=== PATIENT | female | born 1950 | race African-American/Black ===

== ENCOUNTER 2017-08-30 15:38 | Inpatient (IN) | payer MEDICARE, MEDICAID ==
[~2017-08-30] VITALS: Ht 160 cm; Wt 85.7 kg
[~2017-08-30 15:38] MED LIST: ADVAIR 100-501 EACH IH; ALBUTEROL2.5 MG/3 M HHN; BENADRYL25 MG PO; COUMADIN; COUMADIN1 MG ORAL; COUMADIN5 MG ORAL; DILANTIN100 MG PO; DILAUDID2 MG PO; DILAUDID4 MG ORAL; METFORMIN HCL1000 M1 ORAL; MS CONTIN15 MG PO; OXYCONTIN10 MG PO; OXYCONTIN20 MG PO; PERCOCET 5-3251 EACH PO; PROVENTIL2 MG PO; TENORMIN50 MG ORAL; UNOBMED; VICODIN 5-5001 EACH PO; htn med
[2017-08-30 16:00] VITALS: BP 139/69
[2017-08-30] MEDS ORDERED: Albuterol ud Inhalation HHN PRN (16:45)
[2017-08-30] MEDS: Morphine Sulfate 2mg/ml Inj IVP PRN ×2 (18:10→21:11)
[2017-08-30] MEDS ORDERED: Nitroglycerin Subl 0.4mg tab SL PRN (20:15)
[2017-08-30 21:00] VITALS: BP 154/74
[2017-08-31] VITALS: BP 132/70
[2017-08-31] MEDS: Morphine Sulfate 2mg/ml Inj IVP PRN ×8 (00:17→21:15)
--- NOTE | 2017-08-31 01:01 | History and Physical Report ---
DATE OF ADMISSION: 08/30/2017 NOTE: POOR AUDIO HISTORY: This is a 66-year-old female who was living at board and care, came to the hospital for having intractable lower back pain and severe arthritis on both knees and hip area. The patient also had ORIF on the left femur. She also has history of depression and . ALLERGIES: NKA. MEDICATIONS: See the list. PHYSICAL EXAMINATION: GENERAL: This is an elderly female, who is currently slightly anxious, complaining of intractable pain on lower back as well as bilateral knee. VITAL SIGNS: Blood pressure is 130/70, pulse 74, respirations 18, and saturation 96%. HEENT: ATNC. EOMI. PERRLA. NECK: Supple. No JVD. CHEST: Bilateral few crackles and wheezing. CARDIOVASCULAR: Regular rhythm. No gallop. No murmur. ABDOMEN: Soft. Positive bowel sounds. Nontender. EXTREMITIES: The patient has diffuse tenderness on both knees as well as lower back on the lumbar spine and the patient is stooping. The patient is unable to walk due to the pain. GENITOURINARY: Refused. RECTAL: Refused. ASSESSMENT: 1. Intractable pain. 2. Severe arthritis. 3. Chronic back pain. 4. Depression. 5. Status post open reduction and internal fixation. PLAN: She will be admitted on medical floor. We will start pain medicine morphine. Consider pain consult. Consider also psychiatric consult. Also added Cymbalta for depression. chest x-ray and x-ray on lower back pain as well as knee. the patient also given breathing treatment because of COPD and chronic smoker. Also we . Stuart García M.D. DR: KELSEY JOB#: [id number] CC:
[2017-08-31 04:00] VITALS: BP 123/66
[2017-08-31] MEDS: Albuterol/Ipratropium 3ml neb HHN PRN ×2 (05:49→20:19)
[2017-08-31] MEDS: Miralax 17gm pkt ORAL PRN (06:31)
[2017-08-31 08:00] VITALS: BP 130/77
--- NOTE | 2017-08-31 08:32 | Consultation ---
History of Present Illness General Date patient seen: Aug 31, 2017 Present Illness Allergies: Coded Allergies: NO KNOWN ALLERGIES (Unverified Allergy, Unknown, 10/27/14) Medication History Scheduled Metformin Hcl* (Metformin Hcl*), 1,000 MG ORAL BID, (Reported) Warfarin Sod* (Coumadin*), 5 MG ORAL DAILY Scheduled PRN Albuterol Sulfate* (Albuterol Sulfate Hhn*), 2.5 MG HHN Q4H PRN, (Reported) Miscellaneous Medications Albuterol Sulf (Albuterol Sulfate), 2 PUFFS PO, (Reported) [Coumadin], (Reported) [htn med], (Reported) Discontinued Medications Atenolol* (Tenormin*), 50 MG ORAL DAILY, (Reported) Discontinued Reason: Pt stopped taking med Diphenhydramine Hcl* (Benadryl*), 25 MG PO Q6H Discontinued Reason: Pt stopped taking med Hydrocodone/Acetaminophen 5-500 (Vicodin 5-500), TAB PO, (Reported) Discontinued Reason: Pt stopped taking med Hydromorphone HCl (Dilaudid), 2 MG PO Q4H, (Reported) Discontinued Reason: Pt stopped taking med Hydromorphone HCl (Dilaudid), 6 MG ORAL Q4HR PRN, (Reported) Discontinued Reason: Pt stopped taking med Morphine Sulfate (Morphine Sulfate), 15 MG PO BID, (Reported) Discontinued Reason: Pt stopped taking med Oxycodone Hcl Er* (Oxycontin*), 20 MG PO BID, (Reported) Discontinued Reason: Pt stopped taking med Oxycodone/Acetaminophen 5-325* (Percocet 5-325 Mg Tablet*), 1 EACH PO Q4H Discontinued Reason: Pt stopped taking med Patient History Healthcare decision maker N Resuscitation status Do Not Resuscitate Advanced Directive on File No Physical Exam Last 24 Hour Vital Signs Date Time Temp Pulse Resp B/P (MAP) Pulse Ox O2 Delivery O2 Flow Rate FiO2 08/31/17 05:59 81 18 99 Room Air 21 08/31/17 05:49 74 20 99 Room Air 21 08/31/17 04:00 98.0 86 17 123/66 96 Room Air 98.0 08/31/17 01:16 85 18 99 Room Air 08/31/17 00:52 76 20 99 Room Air 21 08/31/17 00:00 98.6 76 18 132/70 100 Room Air 98.6 08/30/17 21:00 98.5 106 20 154/74 98 98.5 08/30/17 18:40 98.6 08/30/17 18:10 98.6 08/30/17 16:00 98.6 76 18 139/69 98 Room Air 98.6 Laboratory Tests Test 08/31/17 06:00 Urine Opiates Screen Pending Urine Barbiturates Screen Pending Phencyclidine (PCP) Screen Pending Urine Amphetamines Screen Pending Urine Benzodiazepines Screen Pending Urine Cocaine Screen Pending Urine Marijuana (THC) Screen Pending Height (Feet): 5 Height (Inches): 3.00 Weight (Pounds): 189 Medications Current Medications Medications (Trade) Dose Ordered Sig/Temi Route PRN Reason Start Time Stop Time Status Last Admin Dose Admin Albuterol Sulfate (Proventil) 2.5 mg Q4H PRN HHN Shortness of Breath 08/30/17 16:45 09/04/17 16:44 Albuterol/ Ipratropium (Albuterol/ Ipratropium) 3 ml Q6H PRN HHN Shortness of Breath 08/30/17 23:00 09/04/17 22:59 08/31/17 05:49 Amitriptyline HCl (Elavil) 25 mg BEDTIME ORAL 08/30/17 21:00 09/29/17 20:59 08/30/17 21:11 Aspirin (ASA) 81 mg DAILY ORAL 08/31/17 09:00 09/30/17 08:59 Cyclobenzaprine HCl (Flexeril) 10 mg TIDPRN PRN ORAL Muscle Spasm 08/31/17 08:15 09/30/17 08:14 UNV Diphenhydramine HCl (Benadryl) 25 mg Q6H PRN ORAL Itching 08/30/17 23:00 09/29/17 22:59 08/31/17 04:35 Duloxetine HCl (Cymbalta) 60 mg DAILY ORAL 08/31/17 09:00 09/30/17 08:59 Famotidine (Pepcid) 40 mg BID ORAL 08/30/17 18:00 09/29/17 17:59 08/30/17 18:10 Morphine Sulfate (Morphine Sulfate) 2 mg Q3H PRN IVP For Pain 08/30/17 16:45 09/06/17 16:44 08/31/17 06:25 Nicotine (Nicoderm) 1 patch Q24H TDERMAL 08/30/17 21:00 09/29/17 20:59 08/30/17 21:12 Nitroglycerin (Ntg) 0.4 mg DAILY SL 08/31/17 09:00 09/30/17 08:59 Nitroglycerin (Ntg) 0.4 mg Q5M PRN SL Prn Chest Pain 08/30/17 20:15 09/29/17 20:14 Non-Formulary Medication (Non-Formulary Med) 1 ea DAILY ORAL 08/31/17 09:00 09/30/17 08:59 UNV Oxycodone/ Acetaminophen (Percocet 10/325) 1 tab Q4H PRN ORAL moderate pain 08/31/17 08:15 09/07/17 08:14 UNV Polyethylene Glycol (Miralax) 17 gm DAILY PRN ORAL Constipation 08/30/17 23:00 09/29/17 22:59 08/31/17 06:31 Pregabalin (Lyrica) 75 mg THREE TIMES A DAY ORAL 08/31/17 09:00 09/30/17 08:59 UNV Assessment/Plan Assessment/Plan (1) Lumbar Spondylosis (2) Lumbar Radiculopathy (3) Multiple joint Osteoarthritis (4) Multiple joint pain (5) H/o polysubstance abuse seen dictated. Ervin Turner Aug 31, 2017 08:32
[2017-08-31] MEDS: Aspirin Baby 81mg ORAL SCH (09:18)
[2017-08-31] MEDS: DULoxetine 30mg cap ORAL SCH (09:18)
[2017-08-31] MEDS: Lyrica 75mg cap ORAL SCH ×3 (09:19→18:23)
[2017-08-31] MEDS: Nitroglycerin Subl 0.4mg tab SL SCH (09:20)
[2017-08-31 12:00] VITALS: BP 128/68
--- NOTE | 2017-08-31 12:36 | Diagnostic Imaging Report ---
Indication: Lumbar spine pain Technique: 3 views of the lumbar spine Comparison: None Findings: Bony alignment is normal. Vertebral body heights are preserved. The disc spaces are preserved. No acute fractures. No dislocations. Bones appear osteoporotic. There is a left hip prosthesis. Impression: No acute process Osteoporotic changes
--- NOTE | 2017-08-31 12:48 | Diagnostic Imaging Report ---
Indication: Intractable chronic low back pain and bilateral leg pain Technique: Sagittal T1 and T2 fast spin echo, sagittal STIR, axial T1 and T2 fast spin-echo images of the lumbar spine Comparison: Plain radiographs performed earlier the same day Findings: Bony alignment is normal. Vertebral body heights are preserved. The vertebral body marrow signal is normal. Conus medullaris terminates at the L1-2 level. The disc spaces are preserved. At L3-4, minimal intraforaminal broad-based disc protrusion bilaterally results in borderline narrowing of the neural foramina. No significant disc bulge or protrusion or spinal stenosis at this level. At the remainder of the levels, no significant disc bulge or protrusion, spinal stenosis, or neural foraminal stenosis. The included extraspinal soft tissues are unremarkable Impression: Essentially unremarkable exam. No evidence of acute bony trauma or significant neural impingement Minimal degenerative changes at L3-4 as described
--- NOTE | 2017-08-31 14:48 | Consultation ---
History of Present Illness General Date patient seen: Aug 31, 2017 Present Illness HPI 66-year-old female who was living at [facility] and care, came to the hospital for having intractable lower back pain and severe arthritis on both knees and hip area. The pt has anxiety and insomnia. the pt is low energy and not able to cope with her stressors Allergies: Coded Allergies: NO KNOWN ALLERGIES (Unverified Allergy, Unknown, 10/27/14) Medication History Scheduled Metformin Hcl* (Metformin Hcl*), 1,000 MG ORAL BID, (Reported) Warfarin Sod* (Coumadin*), 5 MG ORAL DAILY Scheduled PRN Albuterol Sulfate* (Albuterol Sulfate Hhn*), 2.5 MG HHN Q4H PRN, (Reported) Miscellaneous Medications Albuterol Sulf (Albuterol Sulfate), 2 PUFFS PO, (Reported) [Coumadin], (Reported) [htn med], (Reported) Discontinued Medications Atenolol* (Tenormin*), 50 MG ORAL DAILY, (Reported) Discontinued Reason: Pt stopped taking med Diphenhydramine Hcl* (Benadryl*), 25 MG PO Q6H Discontinued Reason: Pt stopped taking med Hydrocodone/Acetaminophen 5-500 (Vicodin 5-500), TAB PO, (Reported) Discontinued Reason: Pt stopped taking med Hydromorphone HCl (Dilaudid), 2 MG PO Q4H, (Reported) Discontinued Reason: Pt stopped taking med Hydromorphone HCl (Dilaudid), 6 MG ORAL Q4HR PRN, (Reported) Discontinued Reason: Pt stopped taking med Morphine Sulfate (Morphine Sulfate), 15 MG PO BID, (Reported) Discontinued Reason: Pt stopped taking med Oxycodone Hcl Er* (Oxycontin*), 20 MG PO BID, (Reported) Discontinued Reason: Pt stopped taking med Oxycodone/Acetaminophen 5-325* (Percocet 5-325 Mg Tablet*), 1 EACH PO Q4H Discontinued Reason: Pt stopped taking med Patient History Limited by: medical condition History Provided By: Patient, Medical Record, PMD Healthcare decision maker N Resuscitation status Do Not Resuscitate Advanced Directive on File No Past Medical/Surgical History Past Medical/Surgical History: (1) Intractable pain (2) Hypertension (3) Chronic pain (4) Intractable pain (5) Anxiety and depression Review of Systems Psychiatric: Reports: prior hx, anxiety, emotional problems Physical Exam General Appearance: no apparent distress, alert Neurologic: alert, oriented x 3, responsive, depressed affect Last 24 Hour Vital Signs Date Time Temp Pulse Resp B/P (MAP) Pulse Ox O2 Delivery O2 Flow Rate FiO2 08/31/17 14:30 97.8 08/31/17 13:31 97.8 08/31/17 12:55 97.8 08/31/17 12:25 97.8 08/31/17 12:00 97.8 70 19 128/68 97 Room Air 97.8 08/31/17 09:25 97.8 08/31/17 09:20 130/77 08/31/17 09:19 97.8 08/31/17 08:00 97.8 71 20 130/77 98 Room Air 97.8 08/31/17 06:55 69 20 Room Air 21 08/31/17 05:59 81 18 99 Room Air 21 08/31/17 05:49 74 20 99 Room Air 21 08/31/17 04:00 98.0 86 17 123/66 96 Room Air 98.0 08/31/17 01:16 85 18 99 Room Air 21 08/31/17 00:52 76 20 99 Room Air 21 08/31/17 00:00 98.6 76 18 132/70 100 Room Air 98.6 08/30/17 21:00 98.5 106 20 154/74 98 98.5 08/30/17 18:10 98.6 08/30/17 16:00 98.6 76 18 139/69 98 Room Air 98.6 Laboratory Tests Test 08/31/17 06:00 Urine Opiates Screen Positive (NEGATIVE) H Urine Barbiturates Screen Negative (NEGATIVE) Phencyclidine (PCP) Screen Negative (NEGATIVE) Urine Amphetamines Screen Negative (NEGATIVE) Urine Benzodiazepines Screen Negative (NEGATIVE) Urine Cocaine Screen Negative (NEGATIVE) Urine Marijuana (THC) Screen Negative (NEGATIVE) Height (Feet): 5 Height (Inches): 3.00 Weight (Pounds): 189 Medications Current Medications Medications (Trade) Dose Ordered Sig/Temi Route PRN Reason Start Time Stop Time Status Last Admin Dose Admin Albuterol Sulfate (Proventil) 2.5 mg Q4H PRN HHN Shortness of Breath 08/30/17 16:45 09/04/17 16:44 Albuterol/ Ipratropium (Albuterol/ Ipratropium) 3 ml Q6H PRN HHN Shortness of Breath 08/30/17 23:00 09/04/17 22:59 08/31/17 05:49 Amitriptyline HCl (Elavil) 25 mg BEDTIME ORAL 08/30/17 21:00 09/29/17 20:59 08/30/17 21:11 Aspirin (ASA) 81 mg DAILY ORAL 08/31/17 09:00 09/30/17 08:59 08/31/17 09:18 Cyclobenzaprine HCl (Flexeril) 10 mg TIDPRN PRN ORAL Muscle Spasm 08/31/17 09:00 09/30/17 08:59 Diphenhydramine HCl (Benadryl) 25 mg Q6H PRN ORAL Itching 08/30/17 23:00 09/29/17 22:59 08/31/17 04:35 Duloxetine HCl (Cymbalta) 60 mg DAILY ORAL 08/31/17 09:00 09/30/17 08:59 08/31/17 09:18 Famotidine (Pepcid) 40 mg BID ORAL 08/30/17 18:00 09/29/17 17:59 08/31/17 09:19 Morphine Sulfate (Morphine Sulfate) 2 mg Q3H PRN IVP For Pain 08/30/17 16:45 09/06/17 16:44 08/31/17 12:25 Nicotine (Nicoderm) 1 patch Q24H TDERMAL 08/30/17 21:00 09/29/17 20:59 08/30/17 21:12 Nitroglycerin (Ntg) 0.4 mg DAILY SL 08/31/17 09:00 09/30/17 08:59 08/31/17 09:20 Nitroglycerin (Ntg) 0.4 mg Q5M PRN SL Prn Chest Pain 08/30/17 20:15 09/29/17 20:14 Non-Formulary Medication (Non-Formulary Med) 1 ea DAILY ORAL 08/31/17 09:00 09/30/17 08:59 UNV Oxycodone/ Acetaminophen (Percocet 10/325) 1 tab Q4H PRN ORAL Moderate Pain (Pain Scale 4-6) 08/31/17 09:00 09/07/17 08:59 Polyethylene Glycol (Miralax) 17 gm DAILY PRN ORAL Constipation 08/30/17 23:00 09/29/17 22:59 08/31/17 06:31 Pregabalin (Lyrica) 75 mg THREE TIMES A DAY ORAL 08/31/17 09:00 09/30/17 08:59 08/31/17 13:31 Assessment/Plan Assessment/Plan Anxiety d/o MDD lexapro 10mg qam klonopin 1mg bid as needed Yumiko Wallace M.D. Aug 31, 2017 14:48
--- NOTE | 2017-08-31 15:43 | Diagnostic Imaging Report ---
Indication: Left knee pain Technique: 2 views of the left knee Comparison: none Findings: No acute fractures. No dislocations. No suprapatellar effusion. The joint spaces are preserved. The bones are osteoporotic Impression: Osteoporotic change. No acute bony trauma
--- NOTE | 2017-08-31 15:44 | Diagnostic Imaging Report ---
Indication: Right knee pain Technique: 2 views of the right knee Comparison: none Findings: No acute fractures. No dislocations. Bony alignment is normal. Joint spaces are preserved. No suprapatellar effusion. Bones are osteoporotic Impression: Osteoporotic changes No acute bony trauma
[2017-08-31 16:00] VITALS: BP 125/70
[2017-08-31 20:00] VITALS: BP 146/80
--- NOTE | 2017-08-31 20:01 | Consultation ---
DATE OF CONSULTATION: 08/31/2017 PAIN MANAGEMENT CONSULTATION CONSULTING PHYSICIAN: Manny Sinha M.D. REFERRING PHYSICIAN: Stuart García M.D. PHYSICIAN INSTRUCTIONAL WRITER: Varsha Pastor CHIEF COMPLAINT: Low back and bilateral lower extremity pain. HISTORY OF PRESENT ILLNESS: This is a 66-year-old female, who is being seen on the medical/surgical floor of [facility] for comprehensive pain management consultation. The patient is a known patient from past admissions and from Dr. Sinha's office, now has returned to the hospital under the care of Dr. García complaining of intractable back and lower extremity pain. Reports that she has history of low back pain for many years, it is chronic and constant, rating at 10/10, describing the pain as sharp, stabbing, shooting pain into bilateral extremities as well as having hip and knee osteoarthritis, receiving injections in [place] with as well as getting oxycodone 30 mg tablets 2 to 3 times a day as an outpatient. Again at this time, the patient was admitted under the care of Dr. García, started on morphine 2 mg IV every 3 hours as needed for pain with minimal pain relief. We were consulted as the patient would have adequate pain control while here in the hospital. The patient reports that in the past, she had epidural injections and would like another series. Discussed with the patient about ordering MRI of the lumbar spine to further assess for epidural injection. The patient seems to understand. She states she has severe bipolar disorder and is going to be seen by a psychiatrist as well. PAST MEDICAL HISTORY: Hypertension and high cholesterol. PAST SURGICAL HISTORY: Left hip surgery. MEDICATIONS: Oxycodone. ALLERGIES: No known drug allergies. SOCIAL HISTORY: She is a smoker of tobacco. Denies alcohol abuse. She has history of cocaine and methamphetamine abuse. REVIEW OF SYSTEMS: Denies rash, fever, chills, sweating, dizziness, drowsiness, blurred vision, sore throat, change in hearing or weight. No shortness of breath or chest pain. No nausea, vomiting, diarrhea, or blood in the stool or urine. No bowel or bladder incontinence. No dysuria. She is complaining of low back and bilateral lower extremity pain. PHYSICAL EXAMINATION: GENERAL: Alert, awake, and oriented. VITAL SIGNS: Blood pressure 123/66, heart rate 86, oxygen saturation is 92%, respirations 17, and temperature 98 degrees Fahrenheit. HEENT: PERRLA. NECK: Range of motion is full in all directions. No tenderness over paracervical muscles. No adenopathy. LUNGS: Decreased breath sounds bilaterally. HEART: Regular. ABDOMEN: Obese. BACK: Range of motion is decreased in flexion and extension with tenderness to paraspinal muscles. No tenderness over trapezius or rhomboid muscles. EXTREMITIES: Upper extremity range of motion is full in all directions. No cyanosis. No clubbing. No edema. Sensory is intact. Reflexes are not obtainable. No adenopathy. Lower extremity motion is decreased due to the patient's condition. Motor being 4/5 in all muscles bilaterally. No cyanosis. No clubbing. Sensory is reduced. Reflexes are not obtainable. No adenopathy. ASSESSMENT AND PLAN: This is a 66-year-old female with lumbar spondylosis, lumbar radiculopathy, multiple-joint osteoarthritis with recurrent pain, and history of polysubstance abuse. The patient will be continued on morphine 2 mg IV every 3 hours as needed for severe pain. We will start the patient on Percocet tablet of 10/325 mg one tablet every 4 hours as needed for moderate pain. Discontinue the Neurontin. Start the patient is on Lyrica 75 mg 3 times a day and add Flexeril 10 mg tablet every 8 hours as needed for muscle spasm. We will order MRI of lumbar spine without contrast to further assess for pathology in the lower back. The patient was discussed with Dr. Sinha and Dr. Sinha concurred. We will follow the patient. Thank you very much for the courtesy of this consultation. Manny Sinha M.D. BRYAN Pastor DR: LÓPEZ JOB#: [id number] CC:
[2017-09-01 00:04] VITALS: BP 155/75
[2017-09-01] MEDS: Morphine Sulfate 2mg/ml Inj IVP PRN ×8 (00:28→21:18)
--- NOTE | 2017-09-01 04:00 | Progress Note ---
DATE: 08/31/2017 NOTE: POOR AUDIO REASON FOR ADMISSION: Intractable pain and chronic obstructive pulmonary disease exacerbation. SUBJECTIVE: This is an elderly female, who is currently complaining of still pains and right hip. The patient is also having cough with sputum production and mild short of breath. PHYSICAL EXAMINATION: VITAL SIGNS: Her blood pressure is 140/90, pulse 60, respirations 18, no fever. HEENT: NAD. CHEST: Bilateral expiratory wheezing and crackles. CARDIOVASCULAR: Regular rhythm. No gallop. No murmur. ABDOMEN: Soft. Positive bowel sounds. Nontender. EXTREMITIES: No swelling. GENITOURINARY: Deferred. LABORATORY DATA: Laboratory examinations are unremarkable. ASSESSMENT: 1. Intractable pain. 2. Acute chronic obstructive pulmonary disease. 3. Hypertension. 4. Degenerative arthritis. 5. Depression. PLAN: We will currently continue psychotropics, continue pain continue morphine and PT and OT. X-ray of the spine and x-ray of hip and bilateral knees pending. Ortho consult is also called, but was not seen at this point. Continue heat pack, Voltaren gel. Continue the gabapentin. Continue Flexeril. Stuart García M.D. DR: MATA JOB#: [id number] CC:
[2017-09-01 04:48] VITALS: BP 135/83
[2017-09-01 08:00] VITALS: BP 137/69
[2017-09-01] MEDS: DULoxetine 30mg cap ORAL SCH (08:25)
[2017-09-01] MEDS: Nitroglycerin Subl 0.4mg tab SL SCH (08:26)
[2017-09-01] MEDS: Lyrica 75mg cap ORAL SCH ×3 (08:26→17:43)
[2017-09-01] MEDS: Aspirin Baby 81mg ORAL SCH (08:26)
[2017-09-01 12:00] VITALS: BP 157/80
[2017-09-01] MEDS: Miralax 17gm pkt ORAL PRN (12:44)
[2017-09-01 16:00] VITALS: BP 159/84
--- NOTE | 2017-09-01 17:45 | Progress Note ---
DATE: 08/31/6017 SUBJECTIVE: This is an elderly female, sitting in the chair, feeling comfortable. Pain is controlled with medical management. Pain management is already on the case. OBJECTIVE: VITAL SIGNS: Blood pressure is 160/90, pulse 60, and respirations 18. No fever. SKIN: Good skin turgor. HEENT: NAD. CHEST: Bilaterally few wheezing. CARDIOVASCULAR: Regular rhythm. No gallop, no murmur. ABDOMEN: Soft. Positive bowel sounds. Nontender. EXTREMITIES: No swelling. Diffuse tenderness on lumbar spine as well as bilateral knees and left hip. ASSESSMENT: 1. Acute chronic obstructive pulmonary disease. 2. Intractable pain. 3. Severe arthritis. 4. Status post ORIF. 5. Depression. PLAN: 1. We will add lidocaine patch on lower back as well as bilateral knee . 2. PT and OT. 3. Patient underwent MRI, results are pending. 4. Continue current pain management. 5. Continue 6. Continue bronchodilator treatments. Stuart García M.D. DR: Olinda JOB#: [id number] CC:
[2017-09-01 20:00] VITALS: BP 158/77
[2017-09-01] MEDS: Cyclobenzaprine 10mg Tab ORAL PRN (21:49)
[2017-09-02] VITALS: BP 158/88
[2017-09-02] MEDS: Morphine Sulfate 2mg/ml Inj IVP PRN ×8 (00:22→23:26)
[2017-09-02 04:00] VITALS: BP 155/70
[2017-09-02 08:00] VITALS: BP 125/73
[2017-09-02] MEDS: Nitroglycerin Subl 0.4mg tab SL SCH (09:00)
[2017-09-02] MEDS: DULoxetine 30mg cap ORAL SCH (09:07)
[2017-09-02] MEDS: Aspirin Baby 81mg ORAL SCH (09:07)
[2017-09-02] MEDS: Lyrica 75mg cap ORAL SCH ×3 (09:08→17:49)
[2017-09-02] MEDS: Cyclobenzaprine 10mg Tab ORAL PRN ×3 (09:08→15:47)
--- NOTE | 2017-09-02 11:31 | General Progress Note ---
Assessment/Plan Assessment/Plan (1) Lumbar Spondylosis (2) Lumbar Radiculopathy (3) Multiple joint Osteoarthritis (4) Multiple joint pain (5) H/o polysubstance abuse Pt will be continued on Morphine D/w Dr. Sinha and he concurred. Subjective Date patient seen: Sep 02, 2017 Time patient seen: 10:30 - am Allergies: Coded Allergies: NO KNOWN ALLERGIES (Unverified Allergy, Unknown, 10/27/14) Subjective REVIEW OF SYSTEMS: Denies rash, fever, chills, sweating, dizziness, drowsiness, blurred vision, sore throat, change in hearing or weight. No shortness of breath or chest pain. No nausea, vomiting, diarrhea, or blood in the stool or urine. No bowel or bladder incontinence. No dysuria. She is complaining of low back and bilateral lower extremity pain. SUBJECTIVE: Patient is in bed and reports that the pain has been tolerable on the Morphine which was reduced by insurance follow up specialist to 1 mg receiving 6 doses in the last 24hrs. The Percocet was also discontinued as per the insurance follow up specialist. MRI results reviewed will d/w radiologist tomorrow. Objective Last 24 Hour Vital Signs Date Time Temp Pulse Resp B/P (MAP) Pulse Ox O2 Delivery O2 Flow Rate FiO2 09/02/17 09:00 125/73 09/02/17 08:00 97.0 67 18 125/73 99 Room Air 97.0 09/02/17 04:00 97.2 71 20 155/70 98 Room Air 97.2 09/02/17 00:00 97.3 65 19 158/88 99 Room Air 97.3 09/01/17 20:00 97.2 74 20 158/77 96 Room Air 97.2 09/01/17 19:30 74 20 Room Air 21 09/01/17 18:39 96.8 09/01/17 18:39 96.8 09/01/17 18:09 96.8 09/01/17 17:43 96.8 09/01/17 16:00 96.8 73 18 159/84 97 Room Air 96.8 09/01/17 15:16 97.9 09/01/17 13:08 97.9 09/01/17 13:01 97.9 09/01/17 12:38 97.9 6/30/18 12:00 97.9 69 20 157/80 96 Room Air 97.9 Intake and Output 09/01/17 09/02/17 19:00 07:00 Intake Total 1080 ml Balance 1080 ml Intake Oral 1080 ml # Voids 4 3 Height (Feet): 5 Height (Inches): 3.00 Weight (Pounds): 189 Objective GENERAL: Alert, awake, and oriented. LUNGS: Decreased breath sounds bilaterally. HEART: S1 S2 Regular. ABDOMEN: Obese. EXTREMITIES: No cyanosis. No clubbing. NEURO: No changes. Procedure: MRI L Spine no Contrast Indication: Intractable chronic low back pain and bilateral leg pain Technique: Sagittal T1 and T2 fast spin echo, sagittal STIR, axial T1 and T2 fast spin-echo images of the lumbar spine Comparison: Plain radiographs performed earlier the same day Findings: Bony alignment is normal. Vertebral body heights are preserved. The vertebral body marrow signal is normal. Conus medullaris terminates at the L1-2 level. The disc spaces are preserved. At L3-4, minimal intraforaminal broad-based disc protrusion bilaterally results in borderline narrowing of the neural foramina. No significant disc bulge or protrusion or spinal stenosis at this level. At the remainder of the levels, no significant disc bulge or protrusion, spinal stenosis, or neural foraminal stenosis. The included extraspinal soft tissues are unremarkable Impression: Essentially unremarkable exam. No evidence of acute bony trauma or significant neural impingement Minimal degenerative changes at L3-4 as described Ervin Turner Sep 02, 2017 11:31
[2017-09-02 12:00] VITALS: BP 124/58
[2017-09-02 16:03] VITALS: BP 147/78
--- NOTE | 2017-09-02 17:49 | Cardiology Report ---
APPROVED REPORT EKG Measurement Heart [id number] Normal sinus rhythm Right atrial enlargement Borderline ECG
[2017-09-02] MEDS: Miralax 17gm pkt ORAL PRN (17:50)
[2017-09-02 20:00] VITALS: BP 149/80
[2017-09-03 00:05] VITALS: BP 132/66
[2017-09-03] MEDS: Morphine Sulfate 2mg/ml Inj IVP PRN ×7 (02:29→21:52)
--- NOTE | 2017-09-03 03:30 | Progress Note ---
DATE: 09/02/2017 SUBJECTIVE: This is an elderly female sitting in bed, complaining of pain. OBJECTIVE: VITAL SIGNS: Improving. CHEST: Bilaterally clear. CARDIOVASCULAR: Regular rhythm. ABDOMEN: Soft. EXTREMITIES: CCE. ASSESSMENT: 1. Intractable pain. 2. Chronic obstructive pulmonary disease. 3. Depression. 4. Neuropathy. PLAN: We will continue current treatment of pain management. He is on pain medication. Continue bronchodilator treatment. . Stuart García M.D. DR: Zuhair JOB#: [id number] CC:
[2017-09-03 04:00] VITALS: BP 136/70
--- NOTE | 2017-09-03 08:01 | General Progress Note ---
Assessment/Plan Assessment/Plan (1) Lumbar Spondylosis (2) Lumbar Radiculopathy (3) Multiple joint Osteoarthritis (4) Multiple joint pain (5) H/o polysubstance abuse Pt will be continued on Morphine D/w Dr. Sinha and he concurred. Subjective Date patient seen: Sep 03, 2017 Time patient seen: 07:30 - am Allergies: Coded Allergies: NO KNOWN ALLERGIES (Unverified Allergy, Unknown, 10/27/14) Subjective REVIEW OF SYSTEMS: Denies rash, fever, chills, sweating, dizziness, drowsiness, blurred vision, sore throat, change in hearing or weight. No shortness of breath or chest pain. No nausea, vomiting, diarrhea, or blood in the stool or urine. No bowel or bladder incontinence. No dysuria. She is complaining of low back and bilateral lower extremity pain. SUBJECTIVE: Patient reports that the pain has been tolerated on the morphine. She has no new complaints. Objective Last 24 Hour Vital Signs Date Time Temp Pulse Resp B/P (MAP) Pulse Ox O2 Delivery O2 Flow Rate FiO2 09/03/17 04:00 97.4 69 17 136/70 100 Room Air 97.4 09/03/17 00:05 97.6 75 18 132/66 99 Room Air 97.6 09/02/17 20:21 76 18 Room Air 21 09/02/17 20:00 97.9 80 18 149/80 97 Room Air 97.9 09/02/17 16:03 97.3 74 18 147/78 99 Room Air 97.3 09/02/17 12:00 97.7 74 18 124/58 99 Room Air 97.7 09/02/17 09:00 125/73 Intake and Output 09/02/17 09/03/17 19:00 07:00 Intake Total 1080 ml 500 ml Balance 1080 ml 500 ml Intake Oral 1080 ml 500 ml # Voids 6 2 Height (Feet): 5 Height (Inches): 3.00 Weight (Pounds): 189 Objective GENERAL: Alert, awake, and oriented. LUNGS: Decreased breath sounds bilaterally. HEART: S1 S2 Regular. ABDOMEN: Obese. EXTREMITIES: No cyanosis. No clubbing. NEURO: No changes. Ervin Turner Sep 03, 2017 08:01
[2017-09-03 08:17] VITALS: BP 122/69
[2017-09-03] MEDS: DULoxetine 30mg cap ORAL SCH (09:23)
[2017-09-03] MEDS: Aspirin Baby 81mg ORAL SCH (09:23)
[2017-09-03] MEDS: Nitroglycerin Subl 0.4mg tab SL SCH (09:26)
--- NOTE | 2017-09-03 10:00 | Consultation ---
DATE OF CONSULTATION: 08/31/2017 NOTE: "POOR AUDIO QUALITY" ORTHOPEDIC CONSULTATION CONSULTING PHYSICIAN: Lizandro Hagan M.D. CHIEF COMPLAINT: Bilateral knee pain. HISTORY OF PRESENT ILLNESS: The patient is a pleasant 66-year-old female with chronic history of bilateral knee and back pain. The patient reports that she is having significant pain and difficulty ambulating. Therefore, she was brought to the ER. The patient has had chronic pain in the back and the knees. ALLERGIES: None. MEDICATIONS: Reviewed from the intake chart. PHYSICAL EXAMINATION: GENERAL: The patient is alert and oriented, resting comfortably at this time in bed. She is currently given breathing treatment. VITAL SIGNS: Afebrile. Stable vital signs. EXTREMITIES: Right knee examination shows some pain on patellar grinding, no significant effusion, some pain along the medial joint line, range of motion is 0 to 120. Left knee examination shows pain with patellar grinding, mild effusion, no significant crepitus. DIAGNOSTIC DATA: Four views of the right knee which osteopenia, I believe these are nonweightbearing views. Two views of the right knee reviewed showed some osteopenia. No fracture, dislocation, or soft tissue abnormalities. MRI of the lumbar spine shows some degenerative changes at L3-L4. ASSESSMENT: 1. Low back pain. 2. Bilateral knee pain. DISCUSSION: pain is. MRI is not that significant for the lumbar radiculopathy as well as for knee pain. Additionally, her knee x-rays did not show advanced end-stage osteoarthritis. I think her pain is multifactorial. get an MRI of the knee and see if there is anything substantial there, however, she is based on radiographs not a candidate for any type of knee replacement procedure. She should get referred to pain management. Lizandro Hagan M.D. DR: Tania JOB#: [id number] CC:
[2017-09-03] MEDS: Lyrica 75mg cap ORAL SCH ×3 (10:49→17:16)
[2017-09-03] MEDS: Miralax 17gm pkt ORAL PRN (10:53)
[2017-09-03 11:44] VITALS: BP 121/58
[2017-09-03] MEDS ORDERED: NORCO 5-325 TA1 EACH ORAL (15:28)
[2017-09-03 16:14] VITALS: BP 145/79
--- NOTE | 2017-09-03 17:35 | General Progress Note ---
Assessment/Plan Status: stable, progressing Assessment/Plan MDD Anxiety d/o dc lexapro cont klonopin cont cymbalta Subjective Date patient seen: Sep 03, 2017 Neurologic/Psychiatric: Reports: anxiety, depressed, emotional problems Allergies: Coded Allergies: NO KNOWN ALLERGIES (Unverified Allergy, Unknown, 10/27/14) Subjective the pt is better however still anxious Objective Last 24 Hour Vital Signs Date Time Temp Pulse Resp B/P (MAP) Pulse Ox O2 Delivery O2 Flow Rate FiO2 09/03/17 16:17 97.5 09/03/17 16:14 97.5 83 20 145/79 100 Room Air 97.5 09/03/17 15:47 97.2 09/03/17 14:17 97.2 09/03/17 13:18 97.2 09/03/17 12:32 97.2 09/03/17 11:44 97.2 75 18 121/58 98 Room Air 97.2 09/03/17 10:49 97.7 09/03/17 09:26 122/69 09/03/17 08:22 71 18 Room Air 21 09/03/17 08:17 97.7 73 18 122/69 100 Room Air 97.7 09/03/17 04:00 97.4 69 17 136/70 100 Room Air 97.4 09/03/17 00:05 97.6 75 18 132/66 99 Room Air 97.6 09/02/17 20:21 76 18 Room Air 21 09/02/17 20:00 97.9 80 18 149/80 97 Room Air 97.9 Intake and Output 09/02/17 09/03/17 19:00 07:00 Intake Total 1080 ml 500 ml Balance 1080 ml 500 ml Intake Oral 1080 ml 500 ml # Voids 6 2 Height (Feet): 5 Height (Inches): 3.00 Weight (Pounds): 189 General Appearance: no apparent distress, alert Neurologic: alert, oriented x 3, responsive, depressed affect Yumiko Wallace MD Sep 03, 2017 17:35
--- NOTE | 2017-09-03 17:36 | Psych Consult Progress Note ---
Psych Consult Progress Note Vital Signs Last 24 Hour Vital Signs Date Time Temp Pulse Resp B/P (MAP) Pulse Ox O2 Delivery O2 Flow Rate FiO2 09/03/17 16:17 97.5 09/03/17 16:14 97.5 83 20 145/79 100 Room Air 97.5 09/03/17 15:47 97.2 09/03/17 14:17 97.2 09/03/17 13:18 97.2 09/03/17 12:32 97.2 09/03/17 11:44 97.2 75 18 121/58 98 Room Air 97.2 09/03/17 10:49 97.7 09/03/17 09:26 122/69 09/03/17 08:22 71 18 Room Air 21 09/03/17 08:17 97.7 73 18 122/69 100 Room Air 97.7 09/03/17 04:00 97.4 69 17 136/70 100 Room Air 97.4 09/03/17 00:05 97.6 75 18 132/66 99 Room Air 97.6 09/02/17 20:21 76 18 Room Air 21 09/02/17 20:00 97.9 80 18 149/80 97 Room Air 97.9 Medications Current Medications Medications (Trade) Dose Ordered Sig/Temi Route PRN Reason Start Time Stop Time Status Last Admin Dose Admin Albuterol Sulfate (Proventil) 2.5 mg Q4H PRN HHN Shortness of Breath 08/30/17 16:45 09/04/17 16:44 Albuterol/ Ipratropium (Albuterol/ Ipratropium) 3 ml Q6H PRN HHN Shortness of Breath 08/30/17 23:00 09/04/17 22:59 08/31/17 20:19 Amitriptyline HCl (Elavil) 25 mg BEDTIME ORAL 08/30/17 21:00 09/29/17 20:59 09/02/17 20:07 Aspirin (ASA) 81 mg DAILY ORAL 08/31/17 09:00 09/30/17 08:59 09/03/17 09:23 Clonazepam (KlonoPIN) 1 mg BID PRN ORAL anxiety 08/31/17 15:00 09/07/17 14:59 09/02/17 18:55 Cyclobenzaprine HCl (Flexeril) 10 mg TIDPRN PRN ORAL Muscle Spasm 08/31/17 09:00 09/30/17 08:59 09/02/17 15:47 Diphenhydramine HCl (Benadryl) 25 mg Q6H PRN ORAL Itching 08/30/17 23:00 09/29/17 22:59 09/01/17 21:49 Duloxetine HCl (Cymbalta) 60 mg DAILY ORAL 08/31/17 09:00 09/30/17 08:59 09/03/17 09:23 Escitalopram Oxalate (Lexapro) 10 mg DAILY ORAL 09/01/17 09:00 10/01/17 08:59 09/03/17 09:23 Famotidine (Pepcid) 40 mg BID ORAL 08/30/17 18:00 09/29/17 17:59 09/03/17 17:15 Lidocaine (Lidoderm 5% PATCH) 3 patch DAILY TDERMAL 09/01/17 15:45 10/01/17 15:44 09/03/17 09:25 Morphine Sulfate (Morphine Sulfate) 1 mg EVERY 3 HOURS PRN IVP For Pain 09/01/17 18:00 09/08/17 17:59 09/03/17 15:47 Nicotine (Nicoderm) 1 patch Q24H TDERMAL 08/30/17 21:00 09/29/17 20:59 09/02/17 20:07 Nitroglycerin (Ntg) 0.4 mg DAILY SL 08/31/17 09:00 09/30/17 08:59 09/03/17 09:26 Nitroglycerin (Ntg) 0.4 mg Q5M PRN SL Prn Chest Pain 08/30/17 20:15 09/29/17 20:14 Polyethylene Glycol (Miralax) 17 gm DAILY PRN ORAL Constipation 08/30/17 23:00 09/29/17 22:59 09/03/17 10:53 Potassium Chloride (K-Dur) 10 meq DAILY ORAL 08/31/17 17:00 09/30/17 16:59 09/03/17 09:23 Pregabalin (Lyrica) 75 mg THREE TIMES A DAY ORAL 08/31/17 09:00 09/30/17 08:59 09/03/17 17:16 Problems: (1) Hypertension (2) Chronic pain Status: Acute (3) Anxiety and depression Status: Acute Assessment & Plan: MDD Anxiety d/o dc lexapro cont klonopin cont cymbalta (4) Intractable pain Onset Date: 10/27/2014 Status: Acute (5) Intractable pain Status: Acute Yumiko Wallace MD Sep 03, 2017 17:36
[2017-09-03 20:45] VITALS: BP 137/67
--- NOTE | 2017-09-03 22:45 | Progress Note ---
DATE: 09/03/2017 SUBJECTIVE: This is a 66-year-old female, who came to the hospital for intractable pain and COPD. The patient is clinically improving. The patient has pain management and also MRI is showing normal and her knees showing osteoporosis and osteoarthritic changes. PHYSICAL EXAMINATION: CHEST: Bilaterally clear. CARDIOVASCULAR: Regular rhythm. ABDOMEN: Soft. EXTREMITIES: Bilateral knee synovitis. ASSESSMENT: 1. Acute chronic obstructive pulmonary disease. 2. Severe degenerative arthritis. 3. Depression. PLAN: 1. Currently discharge plan to SNF. 2. Continue pain management. 3. Continue Neurontin. 4. Continue [place] for pain. 5. Continue PT and OT. 6. physical lidocaine patch. Stuart García M.D. DR: WENDY JOB#: [id number] CC:
[2017-09-04] VITALS: BP 129/62
[2017-09-04] MEDS: Morphine Sulfate 2mg/ml Inj IVP PRN ×5 (06:04→18:54)
--- NOTE | 2017-09-04 07:52 | General Progress Note ---
Assessment/Plan Assessment/Plan (1) Lumbar Spondylosis (2) Lumbar Radiculopathy (3) Multiple joint Osteoarthritis (4) Multiple joint pain (5) H/o polysubstance abuse Pt will be continued on Morphine We will start [place] 5/325mg PO 1 tab Q4H PRN Moderate pain. D/w Dr. Sinha and he concurred. Subjective Date patient seen: Sep 04, 2017 Time patient seen: 07:30 - am Allergies: Coded Allergies: NO KNOWN ALLERGIES (Unverified Allergy, Unknown, 10/27/14) Subjective REVIEW OF SYSTEMS: Denies rash, fever, chills, sweating, dizziness, drowsiness, blurred vision, sore throat, change in hearing or weight. No shortness of breath or chest pain. No nausea, vomiting, diarrhea, or blood in the stool or urine. No bowel or bladder incontinence. No dysuria. She is complaining of low back and bilateral lower extremity pain. SUBJECTIVE: Patient is in bed and reports that her pain has been stable on the Morphine having used 5 doses in the last 24hrs. MRI results where d/w radiologist and addendum was reviewed. Objective Last 24 Hour Vital Signs Date Time Temp Pulse Resp B/P (MAP) Pulse Ox O2 Delivery O2 Flow Rate FiO2 09/04/17 06:34 98.4 09/04/17 06:04 98.4 09/04/17 00:00 98.4 81 17 129/62 96 Room Air 98.4 09/03/17 21:52 97.8 09/03/17 20:48 70 18 Room Air 21 09/03/17 20:45 97.8 86 18 137/67 96 Room Air 97.8 09/03/17 16:14 97.5 83 20 145/79 100 Room Air 97.5 09/03/17 15:47 97.2 09/03/17 14:17 97.2 09/03/17 13:18 97.2 09/03/17 12:32 97.2 09/03/17 11:44 97.2 75 18 121/58 98 Room Air 97.2 09/03/17 10:49 97.7 09/03/17 09:26 122/69 09/03/17 08:22 71 18 Room Air 21 09/03/17 08:17 97.7 73 18 122/69 100 Room Air 97.7 Intake and Output 09/03/17 09/04/17 19:00 07:00 Intake Total 720 ml 600 ml Balance 720 ml 600 ml Intake Oral 720 ml 600 ml # Voids 6 2 Height (Feet): 5 Height (Inches): 3.00 Weight (Pounds): 189 Objective GENERAL: Alert, awake, and oriented. LUNGS: Decreased breath sounds bilaterally. HEART: S1 S2 Regular. ABDOMEN: Obese. EXTREMITIES: No cyanosis. No clubbing. NEURO: No changes. Procedure: MRI L Spine no Contrast ADDENDUM Minimal broad-based concentric disc bulges are present at L3-4 and L4-5 measuring no more than 2 to 3 mm, resulting in some encroachment of the neural foramen. There is some preservation of perineural fat surrounding the exiting L3 and L4 nerve roots at the level of the foramen. Correlate clinically for radiculopathy. Ervin Turner Sep 04, 2017 07:52
[2017-09-04] MEDS ORDERED: Norco 5mg/325mg tab ORAL PRN (08:00)
[2017-09-04] MEDS: Lyrica 75mg cap ORAL SCH ×3 (09:00→17:12)
[2017-09-04] MEDS: DULoxetine 30mg cap ORAL SCH (09:01)
[2017-09-04] MEDS: Aspirin Baby 81mg ORAL SCH (09:02)
[2017-09-04] MEDS: Nitroglycerin Subl 0.4mg tab SL SCH (09:03)
[2017-09-04 12:00] VITALS: BP 131/82
--- NOTE | 2017-09-04 15:29 | General Progress Note ---
Assessment/Plan Problem List: (1) Hypertension ICD Codes: I10 - Essential (primary) hypertension SNOMED: 13269938 (2) Chronic pain ICD Codes: G89.29 - Other chronic pain SNOMED: 85836320 (3) Anxiety and depression Assessment & Plan: MDD Anxiety d/o dc lexapro cont klonopin cont cymbalta ICD Codes: F41.9 - Anxiety disorder, unspecified; F32.9 - Major depressive disorder, single episode, unspecified SNOMED: 81631780, 288524659 (4) Intractable pain ICD Codes: R52 - Intractable pain SNOMED: 28993382 (5) Intractable pain ICD Codes: R52 - Pain, unspecified SNOMED: 80994369 Status: stable Assessment/Plan MDD Anxiety d/o cont klonopin cont cymbalta Subjective Date patient seen: Sep 04, 2017 Neurologic/Psychiatric: Reports: anxiety, depressed, emotional problems Allergies: Coded Allergies: NO KNOWN ALLERGIES (Unverified Allergy, Unknown, 10/27/14) Subjective the pt is better however still anxious Objective Last 24 Hour Vital Signs Date Time Temp Pulse Resp B/P (MAP) Pulse Ox O2 Delivery O2 Flow Rate FiO2 09/04/17 13:20 98.4 09/04/17 13:06 98.4 09/04/17 13:06 98.4 09/04/17 12:36 98.4 09/04/17 12:00 97.9 75 19 131/82 97 Room Air 97.9 09/04/17 09:03 129/62 09/04/17 09:00 98.4 09/04/17 07:58 75 18 Room Air 21 09/04/17 06:04 98.4 09/04/17 00:00 98.4 81 17 129/62 96 Room Air 98.4 09/03/17 21:52 97.8 09/03/17 20:48 70 18 Room Air 21 09/03/17 20:45 97.8 86 18 137/67 96 Room Air 97.8 09/03/17 16:14 97.5 83 20 145/79 100 Room Air 97.5 09/03/17 15:47 97.2 Intake and Output 09/03/17 09/04/17 19:00 07:00 Intake Total 720 ml 600 ml Balance 720 ml 600 ml Intake Oral 720 ml 600 ml # Voids 6 2 Height (Feet): 5 Height (Inches): 3.00 Weight (Pounds): 189 General Appearance: no apparent distress, alert Neurologic: oriented x 3, responsive, depressed affect Yumiko Wallace MD Sep 04, 2017 15:29
[2017-09-04 15:30] VITALS: BP 133/79
[2017-09-04] MEDS ORDERED: AMITRIPTYLINE25 MG ORAL (16:51)
[2017-09-04] MEDS ORDERED: ASPIR 8181 MG ORAL (16:53)
[2017-09-04] MEDS ORDERED: ASPIRIN81 MG ORAL (16:53)
[2017-09-04] MEDS ORDERED: KLONOPIN1 MG ORAL (16:55)
[2017-09-04] MEDS ORDERED: CYCLOBENZAPRINE10 MG ORAL (16:57)
[2017-09-04] MEDS ORDERED: BENADRYL25 MG ORAL (16:58)
[2017-09-04] MEDS ORDERED: CYMBALTA60 MG ORAL (16:59)
[2017-09-04] MEDS ORDERED: FAMOTIDINE40 MG ORAL (17:01)
[2017-09-04] MEDS ORDERED: DUONEB 0.5-3(2.53 ML HHN (17:02)
[2017-09-04] MEDS ORDERED: LIDODERM700 M1 TOPIC (17:06)
[2017-09-04] MEDS ORDERED: NICOTINE1 EAC2 TDERMAL (17:08)
[2017-09-04] MEDS ORDERED: NITROSTAT0.4 M1 SL ×2 (17:10→17:11)
[2017-09-04] MEDS ORDERED: MIRALAX17 G2 ORAL (17:12)
[2017-09-04] MEDS ORDERED: POTASSIUM CHLO10 ME3 ORAL (17:13)
[2017-09-04] MEDS ORDERED: LYRICA75 M1 ORAL (17:14)
--- NOTE | 2017-09-05 01:15 | Discharge Summary ---
DATE OF ADMISSION: 08/30/2017 DATE OF DISCHARGE: 09/04/2017 HISTORY: This is a 66-year-old female, who came to the emergency room for having generalized weakness and COPD. The patient clinically improved as she had pain management and breathing treatment. Chest x-ray is negative. X-ray of the spine is showing severe arthritis. [facility] DISCHARGE DIAGNOSES: 1. Severe arthritis. 2. Chronic obstructive pulmonary disease. 3. Generalized weakness. DIET: She is on 2 g sodium diet. ACTIVITIES: As tolerated. DISCHARGE MEDICATIONS: See the list from the hospital. Stuart García M.D. DR: WENDY JOB#: [id number] CC:
== END 2017-09-04 19:15 | DRG 552 ==
LOC: 4W 15:51
DX: M47.896 Other spondylosis, lumbar region (principal); J44.1 Chronic obstructive pulmonary disease with (acute) exacerbation; M54.16 Radiculopathy, lumbar region; M15.9 Polyosteoarthritis, unspecified; M17.0 Bilateral primary osteoarthritis of knee; M16.0 Bilateral primary osteoarthritis of hip; F41.9 Anxiety disorder, unspecified; F32.9 Major depressive disorder, single episode, unspecified; I10 Essential (primary) hypertension; E78.00 Pure hypercholesterolemia, unspecified; F17.200 Nicotine dependence, unspecified, uncomplicated
CPT/HCPCS: 72020; 72148; 80307; 82962; 93005; 94640; 94664; J7620

== ENCOUNTER 2020-04-05 17:03 | Inpatient (IN) | payer MEDICARE, MEDICAID ==
[~2020-04-05] VITALS: Ht 165.1 cm; Wt 103.9 kg
[~2020-04-05 17:03] MED LIST changes: +ACETAMINOPHEN325 M1 ORAL; +AMBIEN CR6.25 MG ORAL; +AMITRIPTYLINE25 MG ORAL; +ASPIR 8181 MG ORAL; +ASPIRIN81 MG ORAL; +ATIVAN2 MG ORAL; +ATORVASTATIN CA40 MG ORAL; +BENADRYL25 MG ORAL; +BUDESONIDE-FO10.2 G1 IH; +COLACE100 MG ORAL; +CYCLOBENZAPRINE10 MG ORAL; +CYMBALTA60 MG ORAL; +DUONEB 0.5-3(2.53 ML HHN; +FAMOTIDINE40 MG ORAL; +FUROSEMIDE40 MG ORAL; +GABAPENTIN400 MG ORAL; +KLONOPIN1 MG ORAL; +LACTULOSE20 GM/301 ORAL; +LEXAPRO20 MG ORAL; +LIDODERM700 M1 TOPIC; +LYRICA75 M1 ORAL; +METFORMIN HCL500 M1 ORAL; +MIRALAX17 G2 ORAL; +NICOTINE1 EAC2 TDERMAL; +NITROSTAT0.4 M1 SL; +NORCO 5-325 TA1 EACH ORAL; +PERCOCET 10-321 EACH ORAL; +POTASSIUM CHLO10 ME3 ORAL; +ROBAXIN-500MG ORAL; +SODIUM CHLORIDE3 ML IH; +VITAMIN D3 COM1 EACH PO; +ZYPREXA5 MG ORAL
[2020-04-05] MEDS ORDERED: SYMBICORT 16010.2 G1 IH (17:26)
[2020-04-05] MEDS ORDERED: ISOSORBIDE MONO20 MG PO (17:26)
[2020-04-05] MEDS ORDERED: Piperacillin/Tazobactam 3.375 GM in NS 110 ML IVPB ONE (17:30)
--- NOTE | 2020-04-05 18:57 | Emergency Room Report ---
History of Present Illness General Chief Complaint: General Complaint Source: Medical Record Present Illness HPI 69-year-old female presents for right lower extremity swelling and redness x1 week. Come from custodial facility. Denies pain. Denies fevers or chills. No signs of distress on arrival. No other aggravating relieving factors. No other associated symptoms Allergies: Coded Allergies: NO KNOWN ALLERGIES (Unverified Allergy, Unknown, 10/27/14) COVID-19 Screening Contact w/high risk pt: No Experienced COVID-19 symptoms?: No COVID-19 Testing performed COMMUNITY EDUCATION SPECIALIST: No Patient History Past Medical History: DM, HTN, asthma, COPD, CVA/TIA Pertinent Family History: none Social History: Denies: smoking, alcohol use, drug use Now: No Immunizations: UTD Reviewed Nursing Documentation: PMH: Agreed; PSxH: Agreed Nursing Documentation-PMH Hx Cardiac Problems: Yes - artherosclerotic heart disease, heart failure Hx Hypertension: Yes Hx Asthma: Yes Hx COPD: Yes Hx Diabetes: Yes - type 2 Hx Cancer: No Hx Gastrointestinal Problems: Yes - gerd Hx Neurological Problems: No - osteoarthrisis of knee, muscle weakness and atrophy Hx Cerebrovascular Accident: Yes - Stroke Hx Peripheral Neuropathy: Yes Review of Systems All Other Systems: negative except mentioned in HPI Physical Exam Vital Signs Date Time Temp Pulse Resp B/P (MAP) Pulse Ox O2 Delivery O2 Flow Rate FiO2 04/05/20 17:06 97.9 60 16 130/70 (90) 98 Room Air Sp02 EP Interpretation: reviewed, normal General Appearance: no apparent distress, alert, GCS 15, non-toxic, obese Head: normocephalic, atraumatic Eyes: bilateral eye normal inspection, bilateral eye PERRL ENT: hearing grossly normal, normal pharynx, no angioedema, normal voice Neck: full range of motion, supple/symm/no masses Respiratory: chest non-tender, lungs clear, normal breath sounds, speaking full sentences Cardiovascular #1: regular rate, rhythm, no edema Cardiovascular #2: 2+ carotid (R), 2+ carotid (L), 2+ radial (R), 2+ radial (L), 2+ dorsalis pedis (R), 2+ dorsalis pedis (L) Gastrointestinal: normal bowel sounds, non tender, soft, non-distended, no guarding, no rebound Rectal: deferred Genitourinary: normal inspection, no CVA tenderness Musculoskeletal: back normal, normal range of motion, gait/station normal, swelling - RLE, erythema/induration Neurologic: alert, motor strength/tone normal, oriented x3, sensory intact, responsive, speech normal Psychiatric: judgement/insight normal, memory normal, mood/affect normal, no suicidal/homicidal ideation Reflexes: 3+ bicep (R), 3+ bicep (L), 3+ tricep (R), 3+ tricep (L), 3+ knee (R), 3+ knee (L) Lymphatic: no adenopathy Medical Decision Making Diagnostic Impression: Primary Impression: Cellulitis of right leg ER Course Hospital Course 69-year-old female presents to ED with redness, swelling to RLE Differential diagnoses include: Cellulitis, abscess, rash. Clinical course Patient placed on stretcher. After initial history and physical I ordered labs, blood Cx, UA, IVFs labs reviewed - leukocytosis, Hb/Hct stable, no electrolyte abnormalities. CXR - no focal consolidation no acute process antibiotics given. Case discussed with Dr García and he agreed to accept the patient to his service for further care and support Diagnosis - cellulitis of right leg Patient admitted to floor in serious condition Laboratory Tests Test 04/05/20 19:04 04/05/20 19:48 White Blood Count 5.2 K/UL (4.8-10.8) Red Blood Count 4.21 M/UL (4.20-5.40) Hemoglobin 12.8 G/DL (12.0-16.0) Hematocrit 39.3 % (37.0-47.0) Mean Corpuscular Volume 93 FL (80-99) Mean Corpuscular Hemoglobin 30.4 PG (27.0-31.0) Mean Corpuscular Hemoglobin Concent 32.6 G/DL (32.0-36.0) Red Cell Distribution Width 14.1 % (11.6-14.8) Platelet Count 248 K/UL (150-450) Mean Platelet Volume 8.3 FL (6.5-10.1) Neutrophils (%) (Auto) 40.8 % (45.0-75.0) L Lymphocytes (%) (Auto) 40.8 % (20.0-45.0) Monocytes (%) (Auto) 11.0 % (1.0-10.0) H Eosinophils (%) (Auto) 5.8 % (0.0-3.0) H Basophils (%) (Auto) 1.6 % (0.0-2.0) Sodium Level 135 MMOL/L (136-145) L Potassium Level 5.0 MMOL/L (3.5-5.1) Chloride Level 101 MMOL/L (98-107) Carbon Dioxide Level 26 MMOL/L (21-32) Anion Gap 8 mmol/L (5-15) Blood Urea Nitrogen 25 mg/dL (7-18) H Creatinine 1.0 MG/DL (0.55-1.30) Estimat Glomerular Filtration Rate > 60 mL/min (>60) Glucose Level 101 MG/DL (74-106) Calcium Level 8.9 MG/DL (8.5-10.1) Total Bilirubin 0.6 MG/DL (0.2-1.0) Aspartate Amino Transf (AST/SGOT) 44 U/L (15-37) H Alanine Aminotransferase (ALT/SGPT) 31 U/L (12-78) Alkaline Phosphatase 129 U/L (46-116) H Total Protein 8.4 G/DL (6.4-8.2) H Albumin 3.1 G/DL (3.4-5.0) L Globulin 5.3 g/dL Albumin/Globulin Ratio 0.6 (1.0-2.7) L Lactic Acid Level Pending Chest X-Ray Diagnostic Results Chest X-Ray Diagnostic Results : Chest X-Ray Ordered: Yes # of Views/Limited/Complete: 1 View Indication: Other EP Interpretation: Yes Interpretation: no consolidation, no effusion, no pneumothorax, no acute cardiopulmonary disease Impression: No acute disease Electronically Signed by: Electronically signed by Sigifredo Cox MD Last Vital Signs Date Time Temp Pulse Resp B/P (MAP) Pulse Ox O2 Delivery O2 Flow Rate FiO2 04/05/20 17:06 97.9 60 16 130/70 (90) 98 Room Air Status: improved Disposition: ADMITTED INPATIENT Condition: Serious Referrals: Zackery García MD (PCP) Sigifredo Cox MD Apr 05, 2020 18:57
--- NOTE | 2020-04-05 19:10 | NUR ---
Patient came to the ER for lower leg swelling and pain. Patient states that this started about a week ago. Bi-lat legs are swollen and red to the touch. Patient is however able to ambulate and complete ADLS independently. Peripheral IV placed to Left shoulder. Able to voice needs and concerns without difficulty. Will continue to monitor
--- NOTE | 2020-04-05 19:15 | NUR ---
recieved report patient AOx3, came in with complaints of a bilateral leg rash, patient is stable and sleeping no complaints
[2020-04-05 19:21] LABS: BASOPHILS % (AUTO) 1.6 % (0.0-2.0); EOSINOPHILS % (AUTO) 5.8 % (0.0-3.0); HEMATOCRIT 39.3 % (37.0-47.0); HEMOGLOBIN 12.8 G/DL (12.0-16.0); LYMPHOCYTES % (AUTO) 40.8 % (20.0-45.0); MEAN CORPUSCULAR VOLUME 93 FL (80-99); NEUTROPHILS % (AUTO) 40.8 % (45.0-75.0); PLATELET COUNT 248 K/UL (150-450); RED BLOOD COUNT 4.21 M/UL (4.20-5.40); RED CELL DISTRIBUTION WIDTH 14.1 % (11.6-14.8); WHITE BLOOD COUNT 5.2 K/UL (4.8-10.8)
[2020-04-05 19:30] LABS: ANION GAP 8 mmol/L (5-15); BLOOD UREA NITROGEN 25 mg/dL (7-18); CALCIUM 8.9 MG/DL (8.5-10.1); CARBON DIOXIDE 26 MMOL/L (21-32); CHLORIDE 101 MMOL/L (98-107); SODIUM 135 MMOL/L (136-145)
--- NOTE | 2020-04-05 19:30 | NUR ---
ED Nurse Note: BLOOD CULTURES AND LACTIC DRAWN AND SENT TO LAB
[2020-04-05 19:35] LABS: ALANINE AMINOTRANSFERASE 31 U/L (12-78); ALBUMIN 3.1 G/DL (3.4-5.0); ALBUMIN/GLOBULIN RATIO 0.6 (1.0-2.7); ALKALINE PHOSPHATASE 129 U/L (46-116); ASPARTATE AMINO TRANSFERASE 44 U/L (15-37); BILIRUBIN,TOTAL 0.6 MG/DL (0.2-1.0)
[2020-04-05 20:10] VITALS: BP 136/44
--- NOTE | 2020-04-05 20:20 | NUR ---
report given to Kay REYES, discussed orders medication given, labs, and medical history will collect nasal and anal swab before departure
--- NOTE | 2020-04-05 20:25 | NUR ---
Patient refused swabs, stated she was not informed she would be admitted, patient refused offer to send belongings to security and refused to sign personal belongings form
--- NOTE | 2020-04-05 20:30 | NUR ---
Anthony cullen in EDM - 04/05/20 at 2059 by SHANNAN ED Nurse Note: BLOOD CULTURES AND LACTIC DRAWN AND SENT TO LAB
--- NOTE | 2020-04-05 20:50 | NUR ---
ED Nurse Note: PATIENT AGREED TO SIGN PERSONAL BELONGINGS PAPER, REFUSED TO ALLOW RN TO GO THROUGH HER BELONGINGS
--- NOTE | 2020-04-05 21:14 | History and Physical Report ---
DATE OF ADMISSION: 04/05/2020 HISTORY OF PRESENT ILLNESS: This is an elderly 69-year-old female who came to the emergency room for having bilateral leg swelling, more on the left, and was also noted to have blisters on the left leg and some pus draining. The patient also is feeling generalized weakness and more intense pain. The patient denies any fever or chills. Denies any nausea, vomiting, abdominal pain. PAST MEDICAL HISTORY: Significant for chronic pain, severe arthritis, COPD, hypertension, comorbid obesity, depression. MEDICATIONS: See the list. ALLERGIES: NKA. FAMILY HISTORY: Noncontributory. SOCIAL HISTORY: [facility]. The patient walks with a walker. REVIEW OF SYSTEMS: Generalized weakness, tired, intense pain on the left leg, has draining pus, and has been progressively getting swelling of both legs. PHYSICAL EXAMINATION: VITAL SIGNS: Blood pressure is 126/70, pulse 84, respirations 18 to 24, temperature no fever. HEENT: Mild JVD. CHEST: Bilateral crackles. A few wheezing. CARDIOVASCULAR: Regular rhythm. No gallop. No murmur. ABDOMEN: Soft. Positive bowel sounds. Nontender. EXTREMITIES: 2+ edema, more on the left side and has a blister and an abscess on the left side of leg. GENITOURINARY: Deferred. LABORATORY DATA: Not available. ASSESSMENT: 1. Cellulitis/abscess on left leg. 2. Leg edema. 3. Chronic pain syndrome. 4. COPD. 5. Hypertension. 6. Comorbid obesity. 7. Degenerative arthritis. PLAN: We will admit on the medical floor. Start IV Lasix, IV antibiotics. Keep legs elevated. Fluid restriction. Consider pain management and consider cardiology consult and possible ID consult. Resume home meds. We will also do venous duplex to rule out DVT if she has not done it in the ER. Stuart García M.D. DR: OFELIA JOB#: [id number] CC:
[2020-04-05] MEDS ORDERED: Albuterol ud Inhalation HHN PRN (22:00)
[2020-04-05] MEDS ORDERED: Lactulose 20gm/30ml UDC ORAL PRN (22:00)
[2020-04-05] MEDS ORDERED: Methocarbamol 500mg tab ORAL PRN (22:00)
[2020-04-05] MEDS ORDERED: Ocean Nasal Spray 45ml NASAL PRN (22:00)
[2020-04-05] MEDS ORDERED: LORazepam 1mg tab ORAL PRN (22:00)
[2020-04-05] MEDS ORDERED: Nitroglycerin Subl 0.4mg tab SL PRN (22:00)
[2020-04-05] MEDS: OLANZapine 2.5mg tab ORAL SCH (22:27)
[2020-04-05] MEDS: Atorvastatin 20mg tab ORAL SCH (22:27)
[2020-04-05] MEDS: Heparin 5000 units/ml inj SUBQ SCH (22:30)
--- NOTE | 2020-04-05 23:40 | NUR ---
NURSE NOTES: Received patient from ED on wheelchair assisted by 2 staff, on room air, patient denied SOB. IV access on the left upper arm, able to walk with assistance. Right leg is bigger than the left, pt denied trauma and left leg has scratches and confirmed by patient. Patient refused RN to check belongings. She couldn't remember the last time she had BM. Instructed to use call light for assistance. Call light in reach. Bed in lowest, lock engaged and alarm on. Will monitor. Admission orders obtained from Dr. García and carried out.
[2020-04-06] VITALS: BP 123/77
[2020-04-06 04:00] VITALS: BP 103/48
[2020-04-06] MEDS: Heparin 5000 units/ml inj SUBQ SCH ×3 (05:39→21:37)
--- NOTE | 2020-04-06 06:53 | NUR ---
NURSE NOTES: Patient was transported to GI lab via [facility] with a staff.
--- NOTE | 2020-04-06 07:20 | NUR ---
NURSE HAND-OFF: Important Events on Shift [none] Patient Status: [stable] Diet: [CCHO] Pending Orders: [] Pending Results/Labs:[] Pending MD notification:[] Latest Vital Signs: Temperature 98.3 , Pulse 85 , B/P 106 /53 , Respiratory Rate 20 , O2 SAT 92 , Room Air, O2 Flow Rate 2.0 . Vital Sign Comment: [] Latest Parker Fall Score: 60 Fall Risk: High Risk Safety Measures: Call light Within Reach, Bed Alarm Zone 1, Side Rails Side Rails x3, Bed position Low and Locked. Fall Precautions: Yellow Socks Patient Fall Education Report given to [Romina REYES]. Addendum: 04/06/20 at 1942 by Dianna Zayas RN Time is 1919 not 14
--- NOTE | 2020-04-06 07:30 | NUR ---
NURSE NOTES: Received report from Romina REYES. Patient is awake in bed A&O x3/4, no acute distress. On room air, no SOB. Fall precautions, call light in reach, side rails up, bed alarm on. IV asymptomatic and patent. Patient reports no pain. Updated on care plan.
--- NOTE | 2020-04-06 07:59 | NUR ---
NURSE HAND-OFF: Important Events on Shift: Admission Patient Status: Diet: regular Pending Orders: Pending Results/Labs: Pending MD notification: Latest Vital Signs: Temperature 97.5 , Pulse 89 , B/P 103 /48 , Respiratory Rate 19 , O2 SAT 93 , Room Air, O2 Flow Rate . Vital Sign Comment: Latest Parker Fall Score: 60 Fall Risk: High Risk Safety Measures: Call light Within Reach, Bed Alarm , Side Rails Side Rails x2, Bed position Low and Locked. Fall Precautions: Report given to ERIC Bustamante.
[2020-04-06 08:00] VITALS: BP 135/61
[2020-04-06] MEDS ORDERED: Enalapril 5mg tab ONE (08:55)
[2020-04-06] MEDS: Imdur 30mg tab ORAL SCH ×2 (09:01→09:06)
[2020-04-06] MEDS: Vitamin B Complex Tab ORAL SCH ×2 (09:01→09:05)
[2020-04-06] MEDS: Docusate 100mg cap ORAL SCH ×4 (09:02→17:46)
[2020-04-06] MEDS: metFORMIN 500mg tab ORAL SCH ×2 (09:02→09:05)
[2020-04-06] MEDS: Linaclotide 72mcg ORAL SCH ×2 (09:02→09:06)
[2020-04-06] MEDS: cefTRIAXone 1gm/D5W 55ml IVPB SCH ×4 (09:04→09:05)
--- NOTE | 2020-04-06 09:21 | NUR ---
CASE MANAGEMENT:REVIEW 69 YR OLD FEMALE BIBA FROM [facility] CC: RT LEG PAIN AND SWELLING SI: RLE CELLULITIS 97.8 60 16 130/70 98% ON RA BUN+25 AST+44 IS: 1L NS BOLUS IV ZOSYN CHEST XRAY BLOOD CX : TO MED/SURG 4 [facility] DCP: [facility]
--- NOTE | 2020-04-06 10:52 | General Progress Note ---
Subjective Date patient seen: Apr 06, 2020 ROS Limited/Unobtainable: Yes Constitutional: Reports: weakness HEENT: Reports: no symptoms Cardiovascular: Reports: chest pain Respiratory: Reports: cough, shortness of breath Gastrointestinal/Abdominal: Reports: no symptoms Genitourinary: Reports: no symptoms Neurologic/Psychiatric: Reports: no symptoms Endocrine: Reports: no symptoms Hematologic/Lymphatic: Reports: no symptoms Allergies: Coded Allergies: NO KNOWN ALLERGIES (Unverified Allergy, Unknown, 10/27/14) Subjective awake c/o cough Objective Last 24 Hour Vital Signs Date Time Temp Pulse Resp B/P (MAP) Pulse Ox O2 Delivery O2 Flow Rate FiO2 04/06/20 09:18 135/61 04/06/20 09:06 135/61 04/06/20 09:01 135/61 04/06/20 08:00 98.4 87 20 135/61 (85) 92 04/06/20 04:00 97.5 89 19 103/48 (66) 93 04/06/20 00:00 98.2 86 20 123/77 (92) 97 04/05/20 21:09 Room Air 04/05/20 20:10 97.9 88 16 136/44 98 Room Air 04/05/20 18:57 Room Air 04/05/20 18:57 Room Air 04/05/20 17:06 97.9 60 16 130/70 (90) 98 Room Air Intake and Output 04/05/20 04/06/20 19:00 07:00 Intake Total 1100 ml 300 ml Balance 1100 ml 300 ml Intake Oral 300 ml IV Total 1100 ml # Voids 3 # Bowel Movements 1 Laboratory Tests 04/05/20 19:04: White Blood Count 5.2, Red Blood Count 4.21, Hemoglobin 12.8, Hematocrit 39.3, Mean Corpuscular Volume 93, Mean Corpuscular Hemoglobin 30.4, Mean Corpuscular Hemoglobin Concent 32.6, Red Cell Distribution Width 14.1, Platelet Count 248, Mean Platelet Volume 8.3, Neutrophils (%) (Auto) 40.8L, Lymphocytes (%) (Auto) 40.8, Monocytes (%) (Auto) 11.0H, Eosinophils (%) (Auto) 5.8H, Basophils (%) (Auto) 1.6, Sodium Level 135L, Potassium Level 5.0, Chloride Level 101, Carbon Dioxide Level 26, Anion Gap 8, Blood Urea Nitrogen 25H, Creatinine 1.0, Estimat Glomerular Filtration Rate > 60, Glucose Level 101, Calcium Level 8.9, Total Bilirubin 0.6, Aspartate Amino Transf (AST/SGOT) 44H, Alanine Aminotransferase (ALT/SGPT) 31, Alkaline Phosphatase 129H, Total Protein 8.4H, Albumin 3.1L, Globulin 5.3, Albumin/Globulin Ratio 0.6L 04/05/20 19:48: Lactic Acid Level 0.90 Height (Feet): 5 Height (Inches): 5.00 Weight (Pounds): 229 General Appearance: alert EENT: PERRL/EOMI Neck: supple Cardiovascular: regular rhythm Respiratory/Chest: crackles/rales Abdomen: non tender, soft Extremities: calf tenderness, swelling Edema: moderate edema Skin: warm/dry Assessment/Plan Assessment/Plan: cellulitis of rt leg corwin edema chf copd ch pain syndrome depression iv abx pain meds check venous duplex Zackery García MD Apr 06, 2020 10:52
[2020-04-06 12:00] VITALS: BP 125/65
--- NOTE | 2020-04-06 13:06 | Consultation ---
Consult Note Consult Note DATE OF CONSULTATION: 04/06/2020 CONSULTING PHYSICIAN: Lee Mcintyre MD. ATTENDING PHYSICIAN: Dr. García REASON FOR CONSULTATION: History of COPD, hypoxia on arrival HISTORY OF PRESENT ILLNESS: This is a 69-year-old female from [facility] with past medical history of diabetes mellitus, hypertension, asthma, COPD, and CVA/TIA, who presented to ED for evaluation of right lower extremity swelling and redness x1 week. She denies pain, fever, chills, or distress. She was admitted yesterday and is now seen in MedSurg unit. We have been asked to see the patient given her history of COPD, asthma and her hypoxia on arrival. Patient denies using home oxygen. She was on room air on evaluation saturating at 88% without signs of respiratory distress. She was placed on 2 L nasal cannula with subsequent improvement of her oxygen saturation. She is receiving Symbicort twice a day. PAST MEDICAL HISTORY: Diabetes mellitus, hypertension, asthma, COPD, CVA/TIA MEDICATIONS: Acetaminophen, albuterol, atorvastatin, Symbicort, docusate, Benadryl, Lexapro, Lasix, gabapentin, isosorbide mononitrate, lactulose, lorazepam, Metformin, methocarbamol, vitamin D3, olanzapine, Percocet, potassium chloride, Ambien ALLERGIES: No known allergies FAMILY HISTORY: Unknown PERSONAL/SOCIAL HISTORY: Resident of [facility] REVIEW OF SYSTEMS: Negative except mentioned in HPI PHYSICAL EXAMINATION: VITAL SIGNS: Blood pressure 125/65, heart rate 86, respiratory rate 20, weight 103 kg, height 165 cm General: Patient laying in bed without signs of distress HEENT: Head exam reveals that the head is normocephalic, atraumatic without deformity or unusual swelling. Pupils are PERRLA. CHEST AND LUNGS: Rhonchi appreciated CARDIOVASCULAR: Reveals normal S1, S2 without murmurs, rubs, or clicks. ABDOMEN: Obese, soft with no tenderness or organomegaly. RECTAL: Deferred. MUSCULOSKELETAL: Nonpitting edema bilateral extremities NEUROLOGICAL: nonfocal LABORATORY DATA: Laboratory testing shows unremarkable CBC. Chemistries show sodium 135, BUN 25, AST 44 Assessment/Plan 1. COPD -Patient denies using home oxygen -Currently saturating well on 2 L nasal cannula; will wean as tolerated 2. Asthma -Patient is on Symbicort -Monitor for wheezing and hypoxia 3. Right lower extremity cellulitis -On antibiotics -Per primary MD 4. DVT prophylaxis -Venous duplex ultrasound of lower extremities negative for DVT -On heparin subcu The care for this patient was discussed with my supervising physician. Time spent for this case was approximately 31 minutes. Ravi Delgado Apr 06, 2020 13:05
--- NOTE | 2020-04-06 15:29 | Diagnostic Imaging Report ---
Indication: Reason For Exam: DVT Technique: Grayscale and duplex images of the bilateral lower extremity veins Comparison: 11/10/2019 11 fluoroscopy terminale only Findings: Technologist reports exam was technically difficult due to body habitus. Bilaterally, grayscale and duplex images demonstrate no evidence of intraluminal thrombus. Normal phasic Doppler waveforms, demonstrating normal augmentation response and no evidence of valvular insufficiency. Greater saphenous vein(s) and tibial veins are patent. Normal compressibility. No significant change Impression: Negative for evidence of lower extremity deep venous thrombosis bilaterally
[2020-04-06 16:00] VITALS: BP 106/53
[2020-04-06] MEDS ORDERED: LACTULOSE10 GM/155 PO (17:26)
[2020-04-06] MEDS ORDERED: LEVORPHANOL TART2 MG PO (17:26)
[2020-04-06] MEDS ORDERED: GABAPENTIN800 MG ORAL (17:26)
[2020-04-06] MEDS ORDERED: VITAMIN B COMP1 EAC2 ORAL (17:26)
[2020-04-06] MEDS ORDERED: LINZESS145 MCG PO (17:26)
[2020-04-06] MEDS ORDERED: NITRO0.4 SL (17:26)
[2020-04-06] MEDS ORDERED: ENALAPRIL MALEA20 MG ORAL (17:26)
--- NOTE | 2020-04-06 18:02 | Diagnostic Imaging Report ---
Indication: Shortness of breath Technique: One view of the chest Comparison: 07/14/2012 Findings: Body habitus limits evaluation. The heart is borderline large. There is equivocal mild interstitial congestion which is not evident previously if real. Impression: Cardiomegaly. Equivocal mild interstitial congestion
--- NOTE | 2020-04-06 19:20 | NUR ---
NURSE HAND-OFF: Important Events on Shift:[none] Patient Status: [stable] Diet: [CCHO] Pending Orders: [] Pending Results/Labs:[] Pending MD notification:[] Latest Vital Signs: Temperature 98.3 , Pulse 85 , B/P 106 /53 , Respiratory Rate 20 , O2 SAT 92 , Room Air, O2 Flow Rate 2.0 . Vital Sign Comment: [] Latest Parker Fall Score: 60 Fall Risk: High Risk Safety Measures: Call light Within Reach, Bed Alarm Zone 1, Side Rails Side Rails x3, Bed position Low and Locked. Fall Precautions: Yellow Socks Patient Fall Education Report given to [Romina REYES].
--- NOTE | 2020-04-06 19:30 | NUR ---
NURSE NOTES: Patient awake in bed, no complaint at this time, on room air. Call light in reach. Bed in lowest, lock engaged and alarm on. Will continue to monitor.
[2020-04-06 20:00] VITALS: BP 120/51
[2020-04-06] MEDS: OLANZapine 2.5mg tab ORAL SCH (21:00)
[2020-04-06] MEDS: Atorvastatin 20mg tab ORAL SCH (21:00)
[2020-04-07] VITALS: BP 128/62
[2020-04-07 04:00] VITALS: BP 131/57
[2020-04-07] MEDS: Heparin 5000 units/ml inj SUBQ SCH ×3 (05:03→21:44)
[2020-04-07 07:23] LABS: BASOPHILS % (AUTO) 0.7 % (0.0-2.0); EOSINOPHILS % (AUTO) 2.7 % (0.0-3.0); HEMATOCRIT 38.7 % (37.0-47.0); HEMOGLOBIN 12.8 G/DL (12.0-16.0); LYMPHOCYTES % (AUTO) 40.3 % (20.0-45.0); MEAN CORPUSCULAR VOLUME 93 FL (80-99); MONOCYTES % (AUTO) 8.8 % (1.0-10.0); NEUTROPHILS % (AUTO) 47.6 % (45.0-75.0); PLATELET COUNT 245 K/UL (150-450); RED BLOOD COUNT 4.16 M/UL (4.20-5.40); RED CELL DISTRIBUTION WIDTH 13.3 % (11.6-14.8); WHITE BLOOD COUNT 5.1 K/UL (4.8-10.8)
--- NOTE | 2020-04-07 07:40 | NUR ---
NURSE HAND-OFF: Important Events on Shift: patient refused pm oral meds Patient Status: Diet: ccho Pending Orders: Pending Results/Labs: Pending MD notification: Latest Vital Signs: Temperature 98.2 , Pulse 79 , B/P 131 /57 , Respiratory Rate 17 , O2 SAT 96 , Room Air, O2 Flow Rate 2.0 . Vital Sign Comment: Latest Parker Fall Score: 60 Fall Risk: High Risk Safety Measures: Call light Within Reach, Bed Alarm Zone 1, Side Rails Side Rails x3, Bed position Low and Locked. Fall Precautions: Yellow Socks Patient Fall Education Report given to ERIC Horne.
[2020-04-07 07:49] LABS: ALANINE AMINOTRANSFERASE 21 U/L (12-78); ALBUMIN/GLOBULIN RATIO 0.6 (1.0-2.7); ALKALINE PHOSPHATASE 124 U/L (46-116); ANION GAP 12 mmol/L (5-15); ASPARTATE AMINO TRANSFERASE 24 U/L (15-37); BILIRUBIN,TOTAL 0.6 MG/DL (0.2-1.0); BLOOD UREA NITROGEN 14 mg/dL (7-18); CALCIUM 8.9 MG/DL (8.5-10.1); CARBON DIOXIDE 25 MMOL/L (21-32); CHLORIDE 104 MMOL/L (98-107); CREATININE 0.7 MG/DL (0.55-1.30); SODIUM 141 MMOL/L (136-145)
[2020-04-07 08:00] VITALS: BP 132/93
--- NOTE | 2020-04-07 08:14 | NUR ---
NURSE NOTES: Patient awake, alert x4; on room air, no sing of distress and shortness of breath; no sign of chest pain; IV Left-Shoulder TKO; bilateral lower extremities edematous; side rails up x2, breaks engaged, bed at lowest position; call light within reach; will keep monitoring.
[2020-04-07] MEDS: Docusate 100mg cap ORAL SCH ×3 (08:34→17:09)
[2020-04-07] MEDS: Vitamin B Complex Tab ORAL SCH (08:35)
[2020-04-07] MEDS: cefTRIAXone 1gm/D5W 55ml IVPB SCH ×2 (08:37)
[2020-04-07] MEDS: metFORMIN 500mg tab ORAL SCH (08:38)
[2020-04-07] MEDS: Imdur 30mg tab ORAL SCH (08:39)
[2020-04-07 12:00] VITALS: BP 117/70
--- NOTE | 2020-04-07 12:34 | Pulmonology Progress Note ---
Subjective ROS Limited/Unobtainable: No Interval Events: none major per nursing Constitutional: Reports: no symptoms HEENT: Repors: no symptoms Respiratory: Reports: productive cough Cardiovascular: Reports: no symptoms Gastrointestinal/Abdominal: Reports: no symptoms Allergies: Coded Allergies: NO KNOWN ALLERGIES (Unverified Allergy, Unknown, 10/27/14) Objective Last 24 Hour Vital Signs Date Time Temp Pulse Resp B/P (MAP) Pulse Ox O2 Delivery O2 Flow Rate FiO2 04/07/20 12:00 98.2 76 20 117/70 (86) 98 04/07/20 09:00 Room Air 04/07/20 08:39 132/93 04/07/20 08:35 132/93 04/07/20 08:00 98.5 78 20 132/93 (106) 97 04/07/20 04:00 98.2 79 17 131/57 (81) 96 04/07/20 00:00 98.9 87 18 128/62 (84) 93 04/06/20 21:00 Room Air 04/06/20 20:00 98.7 78 17 120/51 (74) 92 04/06/20 16:00 98.3 85 20 106/53 (70) 92 Intake and Output 04/06/20 04/07/20 19:00 07:00 Intake Total 480 ml 200 ml Balance 480 ml 200 ml Intake Oral 480 ml 200 ml # Voids 3 2 General Appearance: no acute distress HEENT: atraumatic Respiratory: rhonchi - bilaterally Cardiovascular: normal rate Abdomen: soft, non tender Extremities: other - b/l LE edema Laboratory Tests 04/06/20 17:35: POC Whole Blood Glucose 88 04/06/20 21:34: POC Whole Blood Glucose [Pending] 04/07/20 05:58: White Blood Count 5.1, Red Blood Count 4.16L, Hemoglobin 12.8, Hematocrit 38.7, Mean Corpuscular Volume 93, Mean Corpuscular Hemoglobin 30.8, Mean Corpuscular Hemoglobin Concent 33.1, Red Cell Distribution Width 13.3, Platelet Count 245, Mean Platelet Volume 8.2, Neutrophils (%) (Auto) 47.6, Lymphocytes (%) (Auto) 40.3, Monocytes (%) (Auto) 8.8, Eosinophils (%) (Auto) 2.7, Basophils (%) (Auto) 0.7, Sodium Level 141, Potassium Level 4.0, Chloride Level 104, Carbon Dioxide Level 25, Anion Gap 12, Blood Urea Nitrogen 14, Creatinine 0.7, Estimat Glomerular Filtration Rate > 60, Glucose Level 87, Calcium Level 8.9, Total Bilirubin 0.6, Aspartate Amino Transf (AST/SGOT) 24, Alanine Aminotransferase (ALT/SGPT) 21, Alkaline Phosphatase 124H, Total Protein 8.2, Albumin 3.0L, Globulin 5.2, Albumin/Globulin Ratio 0.6L Current Medications Medications (Trade) Dose Ordered Sig/Temi Route PRN Reason Start Time Stop Time Status Last Admin Dose Admin Acetaminophen (Tylenol) 650 mg Q4H PRN ORAL Temp >100.5 04/05/20 21:30 05/05/20 21:29 Acetaminophen (Tylenol) 650 mg Q4H PRN ORAL Mild Pain (Pain Scale 1-3) 04/05/20 21:45 05/05/20 21:44 04/05/20 22:58 Albuterol Sulfate (Proventil) 2.5 mg QID PRN HHN for SOB/wheezing 04/05/20 22:00 04/10/20 21:59 Atorvastatin Calcium (Lipitor) 40 mg BEDTIME ORAL 04/05/20 22:15 07/04/20 22:14 04/05/20 22:27 Budesonide/ Formoterol Fumarate (Symbicort 160/ 4.5) 2 puff TWICE A DAY INH 04/06/20 09:00 07/05/20 08:59 04/06/20 17:35 Ceftriaxone Sodium 1 gm/ Dextrose 55 ml @ 110 mls/hr DAILY IVPB 04/06/20 09:00 04/13/20 08:59 04/07/20 08:37 Diphenhydramine HCl (Benadryl) 25 mg Q8H PRN ORAL Itching 04/05/20 22:00 05/05/20 21:59 Docusate Sodium (Colace) 100 mg TWICE A DAY ORAL 04/06/20 09:00 05/06/20 08:59 04/06/20 09:02 Enalapril Maleate (Vasotec) 20 mg DAILY ORAL 04/06/20 09:00 05/06/20 08:59 04/07/20 08:35 Escitalopram Oxalate (Lexapro) 20 mg DAILY ORAL 04/06/20 09:00 05/06/20 08:59 04/07/20 08:38 Furosemide (Lasix) 20 mg BID IV 04/06/20 09:00 05/06/20 08:59 04/07/20 08:36 Gabapentin (Neurontin) 800 mg THREE TIMES A DAY ORAL 04/06/20 09:00 05/06/20 08:59 04/07/20 08:33 Guaifenesin/ Dextromethorphan (Robitussin DM Syrup) 5 ml Q8H PRN ORAL For Cough 04/06/20 13:45 07/05/20 13:44 Heparin Sodium (Porcine) (Heparin 5000 units/ml) 5,000 units EVERY 8 HOURS SUBQ 04/05/20 22:00 05/20/20 21:59 04/06/20 21:37 Isosorbide Mononitrate (Imdur) 60 mg DAILY ORAL 04/06/20 09:00 05/06/20 08:59 04/07/20 08:39 Lactulose (Cephulac) 30 gm DAILY PRN ORAL constipation 04/05/20 22:00 05/05/20 21:59 Linaclotide (Linzess) 72 mcg BEFORE BREAKFAST ORAL 04/06/20 07:30 07/05/20 07:29 04/06/20 09:06 Lorazepam (Ativan) 2 mg Q12H PRN ORAL anxiety 04/05/20 22:00 04/12/20 21:59 Metformin HCl (Glucophage) 500 mg DAILY ORAL 04/06/20 09:00 05/06/20 08:59 04/07/20 08:38 Methocarbamol (Robaxin) 500 mg Q8H PRN ORAL muscle spasms 04/05/20 22:00 05/05/20 21:59 Metronidazole 100 ml @ 100 mls/hr Q8HR IVPB 04/05/20 22:00 04/12/20 21:59 04/07/20 05:03 Nitroglycerin (Ntg) 0.4 mg Q5M PRN SL Prn Chest Pain 04/05/20 22:00 05/05/20 21:59 Olanzapine (ZyPREXA) 7.5 mg BEDTIME ORAL 04/05/20 22:30 05/20/20 22:29 04/05/20 22:27 Potassium Chloride (K-Dur) 10 meq DAILY ORAL 04/06/20 09:00 07/05/20 08:59 04/07/20 08:35 Sodium Chloride ([place] Nasal [place]) 1 spray TID PRN NASAL nasal congestion 04/05/20 22:00 05/05/20 21:59 Vitamin B Complex (Vitamin B Complex) 1 tab DAILY ORAL 04/06/20 09:00 07/05/20 08:59 04/07/20 08:35 Assessment/Plan Assessment/Plan 1. COPD -Patient denies using home oxygen -Currently saturating well on 2 L nasal cannula; will wean as tolerated 2. Asthma -Patient is on Symbicort -Monitor for wheezing and hypoxia 3. Right lower extremity cellulitis -On antibiotics -Per primary MD 4. DVT prophylaxis -Venous duplex ultrasound of lower extremities negative for DVT -On heparin subcu The care for this patient was discussed with my supervising physician. Time spent for this case was approximately 31 minutes. Ravi Delgado Apr 07, 2020 12:34
--- NOTE | 2020-04-07 15:28 | General Progress Note ---
Subjective Allergies: Coded Allergies: NO KNOWN ALLERGIES (Unverified Allergy, Unknown, 10/27/14) Subjective awake c/o cough Objective Last 24 Hour Vital Signs Date Time Temp Pulse Resp B/P (MAP) Pulse Ox O2 Delivery O2 Flow Rate FiO2 04/07/20 12:00 98.2 76 20 117/70 (86) 98 04/07/20 09:00 Room Air 04/07/20 08:39 132/93 04/07/20 08:35 132/93 04/07/20 08:00 98.5 78 20 132/93 (106) 97 04/07/20 04:00 98.2 79 17 131/57 (81) 96 04/07/20 00:00 98.9 87 18 128/62 (84) 93 04/06/20 21:00 Room Air 04/06/20 20:00 98.7 78 17 120/51 (74) 92 04/06/20 16:00 98.3 85 20 106/53 (70) 92 Intake and Output 04/06/20 04/07/20 19:00 07:00 Intake Total 480 ml 200 ml Balance 480 ml 200 ml Intake Oral 480 ml 200 ml # Voids 3 2 Laboratory Tests 04/06/20 17:35: POC Whole Blood Glucose 88 04/06/20 21:34: POC Whole Blood Glucose [Pending] 04/07/20 05:58: White Blood Count 5.1, Red Blood Count 4.16L, Hemoglobin 12.8, Hematocrit 38.7, Mean Corpuscular Volume 93, Mean Corpuscular Hemoglobin 30.8, Mean Corpuscular Hemoglobin Concent 33.1, Red Cell Distribution Width 13.3, Platelet Count 245, Mean Platelet Volume 8.2, Neutrophils (%) (Auto) 47.6, Lymphocytes (%) (Auto) 40.3, Monocytes (%) (Auto) 8.8, Eosinophils (%) (Auto) 2.7, Basophils (%) (Auto) 0.7, Sodium Level 141, Potassium Level 4.0, Chloride Level 104, Carbon Dioxide Level 25, Anion Gap 12, Blood Urea Nitrogen 14, Creatinine 0.7, Estimat Glomerular Filtration Rate > 60, Glucose Level 87, Calcium Level 8.9, Total Bilirubin 0.6, Aspartate Amino Transf (AST/SGOT) 24, Alanine Aminotransferase (ALT/SGPT) 21, Alkaline Phosphatase 124H, Total Protein 8.2, Albumin 3.0L, Globulin 5.2, Albumin/Globulin Ratio 0.6L Height (Feet): 5 Height (Inches): 5.00 Weight (Pounds): 229 General Appearance: alert EENT: PERRL/EOMI Neck: supple Cardiovascular: regular rhythm, regularly irregular Respiratory/Chest: crackles/rales Abdomen: non tender, soft Edema: moderate edema Skin: warm/dry Assessment/Plan Assessment/Plan: cellulitis of rt leg corwin edema chf copd ch pain syndrome depression iv abx pain meds check venous duplex Zackery García MD Apr 07, 2020 15:28
[2020-04-07 16:00] VITALS: BP 127/69
--- NOTE | 2020-04-07 19:15 | NUR ---
NURSE NOTES: Received report from ERIC Horne. Pt is in bed, sleeping and has no needs as of right now. Call light within reach, bed in lowest position. Pt stated that they will call me when they are in need of anything. Will continue to monitor.
--- NOTE | 2020-04-07 19:46 | NUR ---
NURSE HAND-OFF: Important Events on Shift:Anti-biotics; Blood sugar check Patient Status: Diet: Pending Orders: Pending Results/Labs: Pending MD notification: Latest Vital Signs: Temperature 98.4 , Pulse 71 , B/P 127 /69 , Respiratory Rate 20 , O2 SAT 98 , Room Air, O2 Flow Rate 2.0 . Vital Sign Comment: Latest Parker Fall Score: 60 Fall Risk: High Risk Safety Measures: Call light Within Reach, Bed Alarm Zone 1, Side Rails Side Rails x3, Bed position Low and Locked. Fall Precautions: Yellow Socks Patient Fall Education Report given to .
[2020-04-07 20:00] VITALS: BP 125/67
[2020-04-07] MEDS: Atorvastatin 20mg tab ORAL SCH (20:25)
[2020-04-07] MEDS: OLANZapine 2.5mg tab ORAL SCH (20:26)
[2020-04-08] VITALS: BP 130/72
[2020-04-08 04:00] VITALS: BP 136/66
[2020-04-08] MEDS: Linaclotide 72mcg ORAL SCH (05:26)
[2020-04-08] MEDS: Heparin 5000 units/ml inj SUBQ SCH ×3 (05:26→21:37)
[2020-04-08] MEDS: guaiFENesin /DM 10ml syrup ORAL PRN ×2 (06:12→14:18)
--- NOTE | 2020-04-08 07:10 | NUR ---
NURSE HAND-OFF: Important Events on Shift: Blood sugar stable, gave robitussin for cough Patient Status: excited Diet: CCHO medium Pending Orders: Pending Results/Labs: Pending MD notification: Latest Vital Signs: Temperature 97.3 , Pulse 83 , B/P 136 /66 , Respiratory Rate 20 , O2 SAT 100 , Room Air, O2 Flow Rate 2.0 . Vital Sign Comment: VSS Latest Parker Fall Score: 60 Fall Risk: High Risk Safety Measures: Call light Within Reach, Bed Alarm Zone 1, Side Rails Side Rails x3, Bed position Low and Locked. Fall Precautions: Yellow Socks Patient Fall Education Report given to ERIC Horne.
--- NOTE | 2020-04-08 07:54 | NUR ---
NURSE NOTES: Patient awake, alert x3, forget-full; on room air, no sing of distress and shortness of breath; no sing of chest pain; IV Left-shoulder, flushes well; bilateral lower extremities edematous; side rails up x2, breaks engaged, bed at lowest position; call light within reach; will keep monitoring.
[2020-04-08 08:00] VITALS: BP 143/73
[2020-04-08] MEDS: Imdur 30mg tab ORAL SCH (08:43)
[2020-04-08] MEDS: Vitamin B Complex Tab ORAL SCH (08:43)
[2020-04-08] MEDS: metFORMIN 500mg tab ORAL SCH (08:44)
[2020-04-08] MEDS: Docusate 100mg cap ORAL SCH ×2 (08:44→18:00)
[2020-04-08] MEDS: cefTRIAXone 1gm/D5W 55ml IVPB SCH ×2 (08:46)
--- NOTE | 2020-04-08 11:06 | Pulmonology Progress Note ---
Subjective ROS Limited/Unobtainable: No Interval Events: none major per nursing Constitutional: Reports: no symptoms HEENT: Repors: no symptoms Respiratory: Reports: productive cough Cardiovascular: Reports: no symptoms Gastrointestinal/Abdominal: Reports: no symptoms Allergies: Coded Allergies: NO KNOWN ALLERGIES (Unverified Allergy, Unknown, 10/27/14) Objective Last 24 Hour Vital Signs Date Time Temp Pulse Resp B/P (MAP) Pulse Ox O2 Delivery O2 Flow Rate FiO2 04/08/20 09:00 Room Air 04/08/20 08:44 143/73 04/08/20 08:43 143/73 04/08/20 08:00 97.2 71 18 143/73 (96) 97 04/08/20 04:00 97.3 83 20 136/66 (89) 100 04/08/20 02:30 77 18 94 Room Air 21 04/08/20 00:00 97.7 72 20 130/72 (91) 94 04/07/20 21:00 Room Air 04/07/20 20:00 97.8 71 20 125/67 (86) 95 04/07/20 16:00 98.4 71 20 127/69 (88) 98 04/07/20 12:00 98.2 76 20 117/70 (86) 98 Intake and Output 04/07/20 04/08/20 18:59 06:59 Intake Total 330 ml 400 ml Balance 330 ml 400 ml Intake Oral 120 ml 400 ml IV Total 210 ml # Voids 6 # Bowel Movements 2 1 General Appearance: no acute distress HEENT: atraumatic Respiratory: rhonchi - bilaterally Cardiovascular: normal rate Abdomen: soft, non tender Extremities: other - b/l LE edema Microbiology Date/Time Source Procedure Growth Status 04/05/20 19:45 Blood Blood Culture - Preliminary NO GROWTH AFTER 24 HOURS Resulted 04/05/20 19:30 Blood Blood Culture - Preliminary NO GROWTH AFTER 24 HOURS Resulted Laboratory Tests 04/07/20 20:38: POC Whole Blood Glucose 97 04/08/20 05:57: POC Whole Blood Glucose 107H Current Medications Medications (Trade) Dose Ordered Sig/Temi Route PRN Reason Start Time Stop Time Status Last Admin Dose Admin Acetaminophen (Tylenol) 650 mg Q4H PRN ORAL Temp >100.5 04/05/20 21:30 05/05/20 21:29 Acetaminophen (Tylenol) 650 mg Q4H PRN ORAL Mild Pain (Pain Scale 1-3) 04/05/20 21:45 05/05/20 21:44 04/05/20 22:58 Albuterol Sulfate (Proventil) 2.5 mg QID PRN HHN for SOB/wheezing 04/05/20 22:00 04/10/20 21:59 Atorvastatin Calcium (Lipitor) 40 mg BEDTIME ORAL 04/05/20 22:15 07/04/20 22:14 04/07/20 20:25 Budesonide/ Formoterol Fumarate (Symbicort 160/ 4.5) 2 puff TWICE A DAY INH 04/06/20 09:00 07/05/20 08:59 04/08/20 08:44 Ceftriaxone Sodium 1 gm/ Dextrose 55 ml @ 110 mls/hr DAILY IVPB 04/06/20 09:00 04/13/20 08:59 04/08/20 08:46 Diphenhydramine HCl (Benadryl) 25 mg Q8H PRN ORAL Itching 04/05/20 22:00 05/05/20 21:59 Docusate Sodium (Colace) 100 mg TWICE A DAY ORAL 04/06/20 09:00 05/06/20 08:59 04/06/20 09:02 Enalapril Maleate (Vasotec) 20 mg DAILY ORAL 04/06/20 09:00 05/06/20 08:59 04/08/20 08:44 Escitalopram Oxalate (Lexapro) 20 mg DAILY ORAL 04/06/20 09:00 05/06/20 08:59 04/08/20 08:43 Furosemide (Lasix) 20 mg BID IV 04/06/20 09:00 05/06/20 08:59 04/08/20 08:45 Gabapentin (Neurontin) 800 mg THREE TIMES A DAY ORAL 04/06/20 09:00 05/06/20 08:59 04/08/20 08:43 Guaifenesin/ Dextromethorphan (Robitussin DM Syrup) 5 ml Q8H PRN ORAL For Cough 04/06/20 13:45 07/05/20 13:44 04/08/20 06:12 Heparin Sodium (Porcine) (Heparin 5000 units/ml) 5,000 units EVERY 8 HOURS SUBQ 04/05/20 22:00 05/20/20 21:59 04/08/20 05:26 Isosorbide Mononitrate (Imdur) 60 mg DAILY ORAL 04/06/20 09:00 05/06/20 08:59 04/08/20 08:43 Lactulose (Cephulac) 30 gm DAILY PRN ORAL constipation 04/05/20 22:00 05/05/20 21:59 Linaclotide (Linzess) 72 mcg BEFORE BREAKFAST ORAL 04/06/20 07:30 07/05/20 07:29 04/06/20 09:06 Lorazepam (Ativan) 2 mg Q12H PRN ORAL anxiety 04/05/20 22:00 04/12/20 21:59 Metformin HCl (Glucophage) 500 mg DAILY ORAL 04/06/20 09:00 05/06/20 08:59 04/08/20 08:44 Methocarbamol (Robaxin) 500 mg Q8H PRN ORAL muscle spasms 04/05/20 22:00 05/05/20 21:59 Metronidazole 100 ml @ 100 mls/hr Q8HR IVPB 04/05/20 22:00 04/12/20 21:59 04/08/20 05:21 Nitroglycerin (Ntg) 0.4 mg Q5M PRN SL Prn Chest Pain 04/05/20 22:00 05/05/20 21:59 Olanzapine (ZyPREXA) 7.5 mg BEDTIME ORAL 04/05/20 22:30 05/20/20 22:29 04/07/20 20:26 Potassium Chloride (K-Dur) 10 meq DAILY ORAL 04/06/20 09:00 07/05/20 08:59 04/08/20 08:44 Sodium Chloride ([place] Nasal [place]) 1 spray TID PRN NASAL nasal congestion 04/05/20 22:00 05/05/20 21:59 Vitamin B Complex (Vitamin B Complex) 1 tab DAILY ORAL 04/06/20 09:00 07/05/20 08:59 04/08/20 08:43 Assessment/Plan Assessment/Plan 1. COPD -Patient denies using home oxygen -Currently saturating well on 2 L nasal cannula; will wean as tolerated 2. Asthma -Patient is on Symbicort -Monitor for wheezing and hypoxia 3. Right lower extremity cellulitis -On antibiotics -Per primary MD 4. DVT prophylaxis -Venous duplex ultrasound of lower extremities negative for DVT -On heparin subcu Medically stable from pulmonary standpoint The care for this patient was discussed with my supervising physician. Time spent for this case was approximately 31 minutes. Ravi Delgado Apr 08, 2020 11:06
[2020-04-08 12:00] VITALS: BP 129/65
[2020-04-08 16:00] VITALS: BP 131/67
--- NOTE | 2020-04-08 16:46 | NUR ---
*-*DISCHARGE PLANNED*-* PATIENT HAS BEEN ACCEPTED AND WILL BE DISCHARGE BACK TO: [facility] P: [phone] [facility] NURSE TO NURSE REPORT ROOM# 130.[facility] SET FOR 6:45PM S/W MILDR[address] [id number]. PLACED A CALL TO PATIENTS BROTHER GRAYSON ZENDEJAS, NO ANSWER LEFT VOICE MESSAGE IN REGARDS TO DISCHARGE PLAN.
--- NOTE | 2020-04-08 16:52 | General Progress Note ---
Subjective Allergies: Coded Allergies: NO KNOWN ALLERGIES (Unverified Allergy, Unknown, 10/27/14) Subjective awake c/o cough Objective Last 24 Hour Vital Signs Date Time Temp Pulse Resp B/P (MAP) Pulse Ox O2 Delivery O2 Flow Rate FiO2 04/08/20 16:00 97.8 76 18 131/67 (88) 98 04/08/20 12:00 97.8 87 19 129/65 (86) 97 04/08/20 09:00 Room Air 04/08/20 08:44 143/73 04/08/20 08:43 143/73 04/08/20 08:00 97.2 71 18 143/73 (96) 97 04/08/20 04:00 97.3 83 20 136/66 (89) 100 04/08/20 02:30 77 18 94 Room Air 21 04/08/20 00:00 97.7 72 20 130/72 (91) 94 04/07/20 21:00 Room Air 04/07/20 20:00 97.8 71 20 125/67 (86) 95 Intake and Output 04/07/20 04/08/20 19:00 07:00 Intake Total 330 ml 400 ml Balance 330 ml 400 ml Intake Oral 120 ml 400 ml IV Total 210 ml # Voids 6 # Bowel Movements 2 1 Laboratory Tests 04/07/20 20:38: POC Whole Blood Glucose 97 04/08/20 05:57: POC Whole Blood Glucose 107H Height (Feet): 5 Height (Inches): 5.00 Weight (Pounds): 229 General Appearance: alert EENT: PERRL/EOMI Neck: supple Cardiovascular: regular rhythm Respiratory/Chest: normal breath sounds Abdomen: non tender, soft Extremities: non-tender Assessment/Plan Assessment/Plan: cellulitis of rt leg better po abx at [facility] [place] edema improving chf copd ch pain syndrome depression iv abx pain meds dc to snf with po abx Zackery García MD Apr 08, 2020 16:52
--- NOTE | 2020-04-08 19:00 | NUR ---
NURSE NOTES: received report from ERIC Bell. pt alert and oriented x 4 with no acute s/s of distress and no co pain. awaiting discharge via ambulance.
--- NOTE | 2020-04-08 19:36 | NUR ---
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 Vital Sign Comment: Latest Parker Fall Score: 60 Fall Risk: High Risk Safety Measures: Call light Within Reach, Bed Alarm Zone 1, Side Rails Side Rails x3, Bed position Low and Locked. Fall Precautions: Yellow Socks Patient Fall Education Report given to .
[2020-04-08 20:00] VITALS: BP 149/81
[2020-04-08] MEDS: Atorvastatin 20mg tab ORAL SCH (20:24)
[2020-04-08] MEDS: OLANZapine 2.5mg tab ORAL SCH (20:24)
--- NOTE | 2020-04-08 23:29 | NUR ---
NURSE NOTES: [facility] arrived. Belongings list verified and signed by the pt and taken with the patient. IV removed, site clean and dry. Pt vital signs stable on discharge. No acute s/s of distress. Pt will be brought to [facility].
--- NOTE | 2020-04-12 12:37 | Discharge Summary ---
Discharge Summary Discharge Summary _ Date of admission: 04/05/2019 Date of discharge: 04/08/[address] García History of Present Illness and Brief Hospital Course Ms. Whaley is a 69-year-old female from SNF with past medical history of diabetes mellitus, hypertension, asthma, COPD, and CVA/TIA, who presented to ED for evaluation of right lower extremity swelling and redness x1 week. She denied pain, fever, chills, or distress. Initial laboratory studies revealed leukocytosis, stable H&H, and electrolytes within normal limits. Chest x-ray was notable for cardiomegaly and mild interstitial congestion. Patient was started on Lasix, and antibiotics for leg swelling. The venous duplex ultrasound of lower extremities was negative for DVT. Blood cultures were negative for growth. Given her history of COPD and asthma, patient was continued on Symbicort. She initially was placed on low-flow oxygen via nasal cannula but she was able to be weaned off of oxygen and stayed on room air until discharge. Patient was medically stable for discharge and was discharged back to SNF on 04/08/2020 on oral antibiotics. Consultants: Pulmonology Dr. Mcintyre Discharge Condition Improved and stable Final diagnoses Cellulitis of right lower extremity Bilateral lower extremity edema CHF COPD Asthma Chest wall pain syndrome History of depression I have been assigned to dictate discharge summary for this account. Ravi Delgado Apr 12, 2020 12:36
== END 2020-04-08 23:35 | DRG 603 ==
LOC: EDBD 17:03 → EMR 17:38 → 4E 18:22 → EDBEDREQ 20:00
DX: L03.116 Cellulitis of left lower limb (principal); I11.9 Hypertensive heart disease without heart failure; J44.9 Chronic obstructive pulmonary disease, unspecified; F32.9 Major depressive disorder, single episode, unspecified; G89.4 Chronic pain syndrome; E66.01 Morbid (severe) obesity due to excess calories; M19.90 Unspecified osteoarthritis, unspecified site; E11.9 Type 2 diabetes mellitus without complications; Z86.73 Personal history of transient ischemic attack (TIA), and cerebral infarction without residual deficits
CPT/HCPCS: 36415; 71045; 80053; 82962; 83605; 85025; 87040; 93970; 96361; 96365; 99285; J7030